=== PATIENT | male | born 2000 | race Caucasian/White ===

== ENCOUNTER → 2018-10-08 | Outpatient (CLI) | payer OTHER ==
[2018-10-08 14:10] LABS: HEMOGLOBIN 14.5 g/dl (13.5-17.5); MEAN CORPUSCULAR HEMOGLOBIN 29.7 pg (27.0-33.0); MEAN CORPUSCULAR HGB CONC 33.7 g/dl (32.0-36.5); MEAN CORPUSCULAR VOLUME 87.9 fl (80.0-96.0); PLATELET COUNT, AUTOMATED 271 10^3/uL (150-450); RED BLOOD COUNT 4.89 10^6/uL (4.30-6.10); WHITE BLOOD COUNT 7.4 10^3/uL (4.0-10.0)
[2018-10-08 14:29] LABS: BLOOD UREA NITROGEN 17 MG/DL (7-18); CALCIUM LEVEL 9.1 MG/DL (8.5-10.1); CARBON DIOXIDE LEVEL 30 MEQ/L (21-32); CHLORIDE LEVEL 105 MEQ/L (98-107); CREATININE FOR GFR 1.18 MG/DL (0.70-1.30); GLUCOSE, FASTING 91 MG/DL (70-100); POTASSIUM SERUM 4.4 MEQ/L (3.5-5.1); SODIUM LEVEL 139 MEQ/L (136-145)
== END ==
LOC: M LAB 13:36
PROVIDERS: ATTEND Plastic Surgery Surgery of the Hand
DX: M54.07 Panniculitis affecting regions of neck and back, lumbosacral region (principal)

== ENCOUNTER 2018-10-13 10:05 | Inpatient (IN) | payer OTHER ==
[~2018-10-13] VITALS: Ht 180.3 cm; Wt 98.3 kg
[~2018-10-13 10:05] MED LIST: LR 1,000 ML IV ONE; ceFAZolin SOD 1 GM in D5W MINI-BAG PLUS 50 ML IV ONE
[2018-10-13] MEDS ORDERED: BUPIVACAINE LIPOSOME/PF 1.3% 20ML VIAL (13.3MG/ML)(EXPAREL)(C9290 PER1MG) As Ordered ONE (12:35)
[2018-10-13] MEDS ORDERED: BACITRACIN PWD 50,000 UNITS VIAL As Ordered ONE (12:35)
[2018-10-13] MEDS ORDERED: ROCURONIUM BROMIDE 50 MG/5 ML VIAL As Ordered ONE ×2 (13:12→13:23)
[2018-10-13] MEDS ORDERED: LIDOCAINE 2% INJ 100 MG/5 ML SDV (FOR ANES.) As Ordered ONE (13:12)
[2018-10-13] MEDS ORDERED: PROPOFOL 200 MG/20 ML VIAL As Ordered ONE (13:12)
[2018-10-13] MEDS ORDERED: MIDAZOLAM INJ 2 MG/2 ML VIAL (J2250) As Ordered ONE (13:12)
[2018-10-13] MEDS ORDERED: fentaNYL 100 MCG/2 ML INJECTION (J3010) As Ordered ONE (13:12)
[2018-10-13] MEDS ORDERED: dexameTHASONE 4 MG/ML 1ML VIAL (J1100) As Ordered ONE (13:15)
[2018-10-13] MEDS ORDERED: ACETAMINOPHEN 1000MG 100ML IV BTL (OFIRMEV) (J0131 PER 10MG) As Ordered ONE (13:24)
[2018-10-13] MEDS ORDERED: HYDROmorphone HCL 2 MG/ML 1ML VIAL (J1170) As Ordered ONE (13:27)
[2018-10-13] MEDS ORDERED: ONDANSETRON 4MG/2ML VIAL (J2405) As Ordered ONE (14:16)
[2018-10-13] MEDS ORDERED: SUGAMMADEX SODIUM 500 MG/5 ML VIAL (BRIDION) As Ordered ONE (14:28)
--- NOTE | 2018-10-13 15:30 | POST-OPPD ---
Postoperative Procedure Note Date Of Procedure: Oct 13, 2018 PREOPERATIVE DIAGNOSIS: panniculitis POSTOPERATIVE DIAGNOSIS: same FINDINGS: Pannus PROCEDURE: Panniculectomy SURGEON: Dr Farrell ANESTHESIA: General SPECIMENS: Pannus 451gm ESTIMATED BLOOD LOSS: 100cc REPLACED: none DRAINS: 10 mm ALVERTO drains x 2 COMPLICATIONS: none POSTOPERATIVE CONDITION: stable dict [id number] PINO FARRELL DO Oct 13, 2018 15:30
[2018-10-13] MEDS ORDERED: oxyCODONE 5MG TAB PO PRN (16:00)
[2018-10-13] MEDS ORDERED: ONDANSETRON 4MG/2ML VIAL (J2405) IV PRN ×2 (16:00→17:15)
[2018-10-13] MEDS ORDERED: LR 1,000 ML IV SCH (16:00)
[2018-10-13] MEDS ORDERED: MEPERIDINE INJ 25 MG/ML VIAL (J2175) IV PRN (16:00)
[2018-10-13] MEDS ORDERED: fentaNYL 100 MCG/2 ML INJECTION (J3010) IV PRN (16:00)
[2018-10-13] MEDS ORDERED: ACETAMINOPHEN TAB 650MG DOSE (2X325MG) PO PRN (17:00)
--- NOTE | 2018-10-13 17:07 | HPEPDOC ---
General Date of Admission 10/13/18 Date of Service: Oct 13, [address] Barksdale Attending Physician: ALFONSO BRITO MD Chief Complaint The patient is a 18-year-old male admitted with a reason for visit of Panniculitis. Source: Patient Exam Limitations: No limitations Timing/Duration: Other Severity: Other (not applicable a couple) Associated Symptoms: Other (none) History of Present Illness This is 18 years old white male with past medical history of no medical disease has lasted more than 100 pounds in 6 months and decided to come and get a panniculectomy done by Dr. George. Surgery went very well without any problems and complication until was discovered by anesthesia that his heart rate was sometimes in low 30s and we called in to admit patient for observation. As per patient, he does not have any history of any medical disease including heart disease, but he feels dizzy once in a while when he is playing sports. Denies any chest pain, shortness of breath, nausea, vomiting or loss of consciousness. Home Medications No Active Prescriptions or Reported Meds Allergies Coded Allergies: No Known Allergies (Unverified , 10/13/18) Past Medical History Medical History None Surgical History Tonsillectomy Family History Significant Family History: No pertinent family hx Social History * Smoker: current smoker Alcohol: Denies Drugs: denies A-FIB/CHADSVASC A-FIB History Current/History of A-Fib/PAF?: No Review of Systems Constitutional: Denies: Chills, Fever, Malaise, Night Sweats, Weakness, Fatigue, Weight Loss, Lethargy, Other Eyes: Denies: Pain, Vision change, Conjunctivae inflammation, Eyelid inflammation, Redness, Other ENT: Denies: Head Aches, Ear Pain, Dysphagia, Sinus Congestion, Post Nasal Drip, Sore Throat, Epistaxis, Other Symptoms Skin: Denies: Rash, Lesions, Jaundice, Bruising, Itching, Dry, Breakdown, Nail Changes, Other Pulmonary: Denies: Dyspnea, Cough, Pleuritic Chest Pain, Other Symptoms Cardiovascular: Denies: Chest Pain, Palpitations, Orthopnea, Paroxysmal Noc. Dyspnea, Edema, Lt Headedness, Other Symptoms Gastrointestinal: Denies: Nausea, Vomiting, Abdominal Pain, Diarrhea, Constipation, Melena, Hematochezia, Other Symptoms Genitourinary: Denies: Dysuria, Frequency, Incontinence, Hematuria, Retention, Other Symptoms Hematologic: Denies: Bruising, Bleeding Excessively, Petecchia, Purpura, Enlarged Lymph Nodes, Other Hematologic Endocrine: Denies: Polydipsia, Polyphagia, Polyuria, Heat Intolerance, Cold Intolerance, Other Endocrine Sx Musculoskeletal: Denies: Neck Pain, Back Pain, Shoulder Pain, Arm Pain, Hand Pain, Leg Pain, Foot Pain, Joint Pain, Muscle Pain, Spasms, Other Symptoms Neurological: Denies: Weakness, Numbness, Incoordination, Change in speech, Confusion, Seizures, Other Symptoms Physical Examination General Exam: Positive: Alert, Cooperative Eye Exam: Positive: PERRLA, Conjunctiva & lids normal ENT Exam: Positive: Atraumatic, Mucous membr. moist/pink Neck Exam: Positive: Supple Chest Exam: Positive: Clear to auscultation, Normal air movement Heart Exam: Positive: Rate Normal, Normal S1, Normal S2 Abdomen Exam: Positive: Normal bowel sounds, Soft Extremity Exam: Positive: Normal pulses Skin Exam: Positive: Nl turgor and temperature Neuro Exam: Positive: Strength at 5/5 X4 ext, Sensation Intact Psych Exam: Positive: Mental status NL, Mood NL, Oriented x 3 Vital Signs Vital Signs Date Time Temp Pulse Resp B/P (MAP) Pulse Ox O2 Delivery O2 Flow Rate FiO2 10/13/18 16:55 98.3 43 18 95 10/13/18 16:50 141/65 (90) 10/13/18 16:05 2 Problems (1) Sinus bradycardia Status: Acute Problem Text: 18 years old white male is being admitted as he was found to be i n sinus bradycardia post anesthesia. Patient has no history of cardiac disease. No other medical problems, sinus bradycardia, most likely secondary to anesthesia, but will be admitted for observation and hopefully will be discharged home tomorrow. Admit patient to the PCU for further observation Telemetry monitoring Activity as tolerated Diet regular DVT prophylaxis not needed as patient is very low risk for DVT Pain management as per Dr. Aragon pt received a dose of Ancef post postop we will also request the echocardiogram in a.m. If patient maintains his cardiac rhythm is normal sinus rhythm and normal echocardiogram, then he can be discharged home and follow with his PCP as an outpatient. No further medical intervention deemed necessary at this time (2) S/P panniculectomy Status: Acute Problem Text: Patient has lost more than 100 pounds in 6 months Colectomy done without any complications or problems Further, as per plastic surgery Plan / VTE VTE Prophylaxis Ordered?: No VTE Exclusion Mechanical Proph: Low Risk for VTE VTE Exclusion Pharmacological: At Low Risk for VTE ALFONSO BRITO MD Oct 13, 2018 17:07
[2018-10-13] MEDS ORDERED: MORPHINE 4 MG/ML 1ML VIAL/SYRINGE (J2270) IV PRN (17:15)
[2018-10-13] MEDS ORDERED: PERCOCET 5MG/325MG TAB PO PRN (17:15)
[2018-10-13 17:27] VITALS: BP 132/59
[2018-10-13 17:57] VITALS: BP 128/58
--- NOTE | 2018-10-13 18:12 | IPNPDOC ---
Subjective General Date/Time Seen The patient was seen on 10/13/18 at 16:05. Subject Chief Complaint/History The patient is a 18-year-old male admitted with a reason for visit of Panniculitis. Patient is POD #0. Doing well in recovery. Pain controlled. Making his needs known. Current Medications Current Medications Current Medications Medications (Trade) Dose Ordered Sig/Harjeet Route PRN Reason Start Time Stop Time Status Last Admin Dose Admin Acetaminophen (Tylenol Tab) 650 mg Q4H PRN PO PAIN OR FEVER 10/13/18 17:00 Cefazolin Sodium 1 gm/Dextrose 50 ml @ 100 mls/hr Q8H IV 10/13/18 21:00 10/14/18 05:29 Fentanyl Citrate (Sublimaze) 25 mcg Q5MP PRN IV MODERATE PAIN (PS 4-7) 10/13/18 16:00 10/13/18 17:00 DC Lactated Ringer's 1,000 ml @ 100 mls/hr Q10H IV 10/13/18 16:00 10/13/18 17:00 DC 10/13/18 15:39 Meperidine HCl (Demerol) 12.5 mg Q5MP PRN IV SHIVERING 10/13/18 16:00 10/13/18 17:00 DC Morphine Sulfate (Morphine Sulfate Inj) 4 mg Q4H PRN IV PAIN 10/13/18 17:15 Ondansetron HCl (ZOFRAN INJection) 4 mg Q4HP PRN IV NAUSEA OR VOMITING 10/13/18 16:00 10/13/18 17:00 DC Ondansetron HCl (ZOFRAN INJection) 4 mg Q6H PRN IV NAUSEA 10/13/18 17:15 Oxycodone HCl (Roxicodone, Oxyir) 5 mg ASDIRECTED PRN PO MILD/MODERATE PAIN (PS 1-7) 10/13/18 16:00 10/13/18 17:00 DC 10/13/18 15:55 Oxycodone/ Acetaminophen (Percocet 5mg/ 325mg Tablet) 1 tab Q4H PRN PO MODERATE PAIN 10/13/18 17:15 Allergies Coded Allergies: No Known Allergies (Unverified , 10/13/18) Objective Physical Examination Examination GENERAL APPEARANCE: Patient seen, laying in bed, awake, alert, and oriented. Comfortable, in no acute distress. SKIN: Warm and moist. Incision intact. ALVERTO drains with dark sanguinous output. 25cc left 50cc right. HEENT: Normocephalic, atraumatic. Ellerbe palpebral conjunctiva, anicteric sclerae. Lips and mucosa appear moist. NECK: Supple, no thyromegaly. No obvious jugular venous distention. LUNGS: Clear to auscultation bilaterally. No wheezing appreciated. HEART: No chest wall abnormalities. Regular rate and rhythm with no murmurs appreciated. ABDOMEN: Abdomen soft. Post op tenderness along the incision. Binder in place. No ecchymosis. Vital Signs Vital Signs Date Time Temp Pulse Resp B/P (MAP) Pulse Ox O2 Delivery O2 Flow Rate FiO2 10/13/18 17:00 42 18 144/63 (90) 93 10/13/18 16:55 98.3 10/13/18 16:05 2 Impression S/p Panniculectomy POD #0 Bradycardia. 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 No chest pain or palpitations per patient. Feeling comfortable. Normal B/P and no distress. However, will monitor the bradycardia on telemetry unit. Medical consult for admission called. Panniculectomy: continue with HOB at 45 degrees. May ambulate today. SCD in bed Incentive spirometry Pain control ordered ALVERTO monitoring. Will follow closely. Plan / VTE VTE Prophylaxis Ordered?: No VTE Exclusion Mechanical Proph: Low Risk for VTE VTE Exclusion Pharmacological: At Low Risk for VTE PINO FARRELL DO Oct 13, 2018 18:12
[2018-10-13 18:17] VITALS: BP 132/61
[2018-10-13 19:20] VITALS: BP 132/59
[2018-10-13 20:20] VITALS: BP 137/61
[2018-10-13] MEDS: ceFAZolin SOD 1 GM in D5W MINI-BAG PLUS 50 ML IV SCH (20:57)
[2018-10-13 23:59] VITALS: BP 120/58
[2018-10-14] VITALS (13 sets, daily range): BP systolic 100–137; BP diastolic 49–63
[2018-10-14] MEDS ORDERED: NS 1,000 ML IV SCH ×2 (01:15→09:00)
[2018-10-14] MEDS: ceFAZolin SOD 1 GM in D5W MINI-BAG PLUS 50 ML IV SCH ×2 (05:35→21:32)
[2018-10-14 05:59] LABS: HEMATOCRIT 32.8 % (42.0-52.0); HEMOGLOBIN 11.1 g/dl (13.5-17.5); MEAN CORPUSCULAR HGB CONC 33.8 g/dl (32.0-36.5); MEAN CORPUSCULAR VOLUME 88.6 fl (80.0-96.0); PLATELET COUNT, AUTOMATED 285 10^3/uL (150-450); WHITE BLOOD COUNT 15.9 10^3/uL (4.0-10.0)
[2018-10-14 06:36] LABS: ALBUMIN 3.2 GM/DL (3.2-5.2); ALT/SGPT 13 U/L (12-78); BILIRUBIN,TOTAL 1.1 MG/DL (0.2-1.0); BLOOD UREA NITROGEN 20 MG/DL (7-18); CALCIUM LEVEL 8.3 MG/DL (8.5-10.1); CARBON DIOXIDE LEVEL 28 MEQ/L (21-32); CHLORIDE LEVEL 104 MEQ/L (98-107); CREATININE FOR GFR 0.96 MG/DL (0.70-1.30); GLUCOSE, FASTING 118 MG/DL (70-100); POTASSIUM SERUM 4.7 MEQ/L (3.5-5.1); SODIUM LEVEL 137 MEQ/L (136-145); TOTAL PROTEIN 5.8 GM/DL (6.4-8.2)
--- NOTE | 2018-10-14 09:08 | IPNPDOC ---
Subjective General Date/Time Seen The patient was seen on 10/14/18 at 08:43. Subject Chief Complaint/History The patient is a 18-year-old male admitted with a reason for visit of Panniculitis. Patient feeling well this morning. Pain controlled with Percocet. He had difficulty urinating last night, straight cath was done. Current Medications Current Medications Current Medications Medications (Trade) Dose Ordered Sig/Harjeet Route PRN Reason Start Time Stop Time Status Last Admin Dose Admin Acetaminophen (Tylenol Tab) 650 mg Q4H PRN PO PAIN OR FEVER 10/13/18 17:00 Cefazolin Sodium 1 gm/Dextrose 50 ml @ 100 mls/hr Q8H IV 10/13/18 21:00 10/14/18 05:29 DC 10/14/18 05:35 Fentanyl Citrate (Sublimaze) 25 mcg Q5MP PRN IV MODERATE PAIN (PS 4-7) 10/13/18 16:00 10/13/18 17:00 DC Lactated Ringer's 1,000 ml @ 100 mls/hr Q10H IV 10/13/18 16:00 10/13/18 17:00 DC 10/13/18 15:39 Meperidine HCl (Demerol) 12.5 mg Q5MP PRN IV SHIVERING 10/13/18 16:00 10/13/18 17:00 DC Morphine Sulfate (Morphine Sulfate Inj) 4 mg Q4H PRN IV PAIN 10/13/18 17:15 10/13/18 23:02 Ondansetron HCl (ZOFRAN INJection) 4 mg Q4HP PRN IV NAUSEA OR VOMITING 10/13/18 16:00 10/13/18 17:00 DC Ondansetron HCl (ZOFRAN INJection) 4 mg Q6H PRN IV NAUSEA 10/13/18 17:15 10/13/18 23:02 Oxycodone HCl (Roxicodone, Oxyir) 5 mg ASDIRECTED PRN PO MILD/MODERATE PAIN (PS 1-7) 10/13/18 16:00 10/13/18 17:00 DC 10/13/18 15:55 Oxycodone/ Acetaminophen (Percocet 5mg/ 325mg Tablet) 1 tab Q4H PRN PO MODERATE PAIN 10/13/18 17:15 10/13/18 20:57 Sodium Chloride 1,000 ml @ 100 mls/hr Q10H IV 10/14/18 01:15 10/14/18 01:31 Allergies Coded Allergies: No Known Allergies (Unverified , 10/13/18) Objective Physical Examination Examination GENERAL APPEARANCE:Patient seen, laying in bed, awake, alert, and oriented. Comfortable, in no acute distress. SKIN: Warm and moist. Incision intact. Slight ecchymosis along the incision line. Left side with mild swelling. Left ALVERTO drain with minimal dark sanguinous output. Right side abdomen soft no swelling. ALVERTO with minimal dark sanguinous output. Flaps viable. HEENT: Normocephalic, atraumatic. Misenheimer palpebral conjunctiva, anicteric sclerae. Lips and mucosa appear moist. NECK: Supple, no thyromegaly. No obvious jugular venous distention. LUNGS: Clear to auscultation bilaterally. No wheezing appreciated. HEART: No chest wall abnormalities. Regular rate and rhythm with no murmurs appreciated. ABDOMEN: Abdomen is soft, post op tenderness along incision. Left lower abdomen swelling. Vital Signs Vital Signs Date Time Temp Pulse Resp B/P (MAP) Pulse Ox O2 Delivery O2 Flow Rate FiO2 10/14/18 08:00 98.0 54 20 112/53 (72) 100 10/13/18 16:05 2 I&Os I&O- Last 24 Hours up to 6 AM 10/14/18 06:00 Intake Total 1850 ml Output Total 815 ml Balance 1035 ml Laboratory Data Labs 24H Laboratory Tests 2 10/14/18 00:51: Bedside Glucose (Misc Panel) 148H 10/14/18 05:26: Nucleated Red Blood Cells % (auto) 0.0, Anion Gap 5L, Blood Urea Nitrogen 20H, Creatinine 0.96, Sodium Level 137, Potassium Level 4.7, Chloride Level 104, Carbon Dioxide Level 28, Calcium Level 8.3L, Aspartate Amino Transf (AST/SGOT) 9, Alanine Aminotransferase (ALT/SGPT) 13, Alkaline Phosphatase 59, Total Bilirubin 1.1H, Total Protein 5.8L, Albumin 3.2, Albumin/Globulin Ratio 1.23 CBC/BMP Laboratory Tests 10/14/18 05:26 Red Blood Count 3.70 L, Mean Corpuscular Volume 88.6, Mean Corpuscular Hemoglobin 30.0, Mean Corpuscular Hemoglobin Concent 33.8, Red Cell Distribution Width 13.3, Calcium Level 8.3 L, Aspartate Amino Transf (AST/SGOT) 9, Alanine Aminotransferase (ALT/SGPT) 13, Alkaline Phosphatase 59, Total Bilirubin 1.1 H, Total Protein 5.8 L, Albumin 3.2 Impression Panniculitis, bradycardia. S/p Panniculectomy. Suspecting hematoma collection under the flap. Recommend evaluation under anesthesia and wash out. Findings discussed with patient. H/H stable Asymptomatic. Bradycardia - continue with work up by medical service. Continue with antibiotics. Plan / VTE VTE Prophylaxis Ordered?: Yes (SCD in bed) VTE Exclusion Mechanical Proph: Low Risk for VTE VTE Exclusion Pharmacological: At Low Risk for VTE PNIO FARRELL DO Oct 14, 2018 09:08
--- NOTE | 2018-10-14 11:19 | ECGEPIP ---
[facility] Test Date: 2018-10-14 Pat Name: DAVID GUNTER Department: Room: [place] [address] Gender: Male Manager Transition: KIKI : 2000 Requested By: PAULETTE Henry Order Number: [id number] Reading MD: Moriah Craft Measurements Intervals [place] Rate: 59 P: 50 NC: 168 QRS: 45 QRSD: 109 T: 20 QT: 423 QTc: 422 Interpretive Statements SINUS BRADYCARDIA WITH SINUS ARRHYTHMIA Electronically Signed on 10-14-2018 11:19:28 EDT by Moriah Craft
[2018-10-14] MEDS ORDERED: dexameTHASONE 4 MG/ML 1ML VIAL (J1100) As Ordered ONE (12:14)
[2018-10-14] MEDS ORDERED: METOCLOPRAMIDE INJ 10MG/2ML VIAL (J2765) As Ordered ONE (12:14)
[2018-10-14] MEDS ORDERED: fentaNYL 100 MCG/2 ML INJECTION (J3010) As Ordered ONE ×2 (12:14→13:01)
[2018-10-14] MEDS ORDERED: LIDOCAINE 2% INJ 100 MG/5 ML SDV (FOR ANES.) As Ordered ONE (12:14)
[2018-10-14] MEDS ORDERED: MIDAZOLAM INJ 2 MG/2 ML VIAL (J2250) As Ordered ONE (12:15)
[2018-10-14] MEDS ORDERED: PROPOFOL 200 MG/20 ML VIAL As Ordered ONE ×2 (12:15→12:40)
[2018-10-14] MEDS ORDERED: ONDANSETRON 4MG/2ML VIAL (J2405) As Ordered ONE (12:15)
[2018-10-14] MEDS ORDERED: GLYCOPYRROLATE INJ 0.2 MG/ML 2 ML VIAL As Ordered ONE (12:20)
[2018-10-14] MEDS ORDERED: BACITRACIN PWD 50,000 UNITS VIAL As Ordered ONE (12:23)
[2018-10-14] MEDS ORDERED: ceFAZolin 1GM INJ (J0690 PER 500MG) As Ordered ONE (12:44)
[2018-10-14] MEDS ORDERED: ceFAZolin SOD 1 GM in D5W MINI-BAG PLUS 50 ML IV SCH (13:00)
--- NOTE | 2018-10-14 14:00 | POST-OPPD ---
Postoperative Procedure Note Date Of Procedure: Oct 14, 2018 PREOPERATIVE DIAGNOSIS: Abdominal incision hematoma POSTOPERATIVE DIAGNOSIS: same FINDINGS: Hematoma 800cc. generalized oozing. No active bleeding vessels. PROCEDURE: Exploration lower abdominal incision, evacuation hematoma. SURGEON: Dr Farrell ANESTHESIA: General SPECIMENS: Hematoma, Culture hematoma ESTIMATED BLOOD LOSS: Hematoma 800cc REPLACED: none DRAINS: 10 mm ALVERTO drain x 2. COMPLICATIONS: none POSTOPERATIVE CONDITION: stable [id number] PINO FARRELL DO Oct 14, 2018 14:00
[2018-10-14] MEDS ORDERED: PERCOCET 5MG/325MG TAB PO PRN (14:15)
[2018-10-14] MEDS ORDERED: fentaNYL 100 MCG/2 ML INJECTION (J3010) IV PRN (14:15)
[2018-10-14] MEDS ORDERED: LR 1,000 ML IV SCH (14:15)
[2018-10-14] MEDS ORDERED: HYDROMORPHONE HCL 0.5 MG/ 0.5 ML SYRINGE (J1170 PER 1) IV PRN (14:15)
[2018-10-14] MEDS ORDERED: ONDANSETRON 4MG/2ML VIAL (J2405) IV PRN ×2 (14:15→14:45)
[2018-10-14] MEDS ORDERED: PERCOCET 5MG/325MG TAB As Ordered ONE (14:29)
[2018-10-14] MEDS: LR 1,000 ML IV SCH (15:33)
[2018-10-14 15:54] LABS: BASO % 0.1 % (0.0-1.0); EOS % 0.1 % (0.0-3.0); HEMATOCRIT 26.8 % (42.0-52.0); LYMPH % 10.3 % (24.0-44.0); MEAN CORPUSCULAR HEMOGLOBIN 30.6 pg (27.0-33.0); MEAN CORPUSCULAR HGB CONC 34.3 g/dl (32.0-36.5); MONO # 0.7 10^3/uL (0.0-0.8); MONO % 7.1 % (0.0-5.0); NEUTROPHILS # 7.8 10^3/uL (1.8-7.7); PLATELET COUNT, AUTOMATED 206 10^3/uL (150-450); RED BLOOD COUNT 3.01 10^6/uL (4.30-6.10); WHITE BLOOD COUNT 9.5 10^3/uL (4.0-10.0)
[2018-10-14 16:06] LABS: HEMOGLOBIN 9.2 g/dl (13.5-17.5)
[2018-10-14 16:08] LABS: BLOOD UREA NITROGEN 21 MG/DL (7-18); CALCIUM LEVEL 7.7 MG/DL (8.5-10.1); CARBON DIOXIDE LEVEL 28 MEQ/L (21-32); CHLORIDE LEVEL 106 MEQ/L (98-107); GLUCOSE, FASTING 109 MG/DL (70-100); POTASSIUM SERUM 4.3 MEQ/L (3.5-5.1); SODIUM LEVEL 140 MEQ/L (136-145)
--- NOTE | 2018-10-14 16:41 | IPNPDOC ---
Date Seen The patient was seen on 10/14/18. Progress Note SUBJECTIVE: Patient appeared comfortable, denying pain or any other complaints. Was noted to have minimal wound drainage and was taken to OR for evacuation of hematoma by Plastic surgery. HR remained low but in 50-70 range. ECHO done in AM. OBJECTIVE PHYSICAL EXAMINATION: VITAL SIGNS: Please see below. General: No acute distress, Alert Eyes: Normal sclera, EOMI, ZACKARY HENT: Atraumatic, neck supple, moist mucous membranes Cardiovascular: Bradycardic. Pulmonary: Clear to auscultation b/l, no wheezing GI: Soft, abdominal dressing/binder in place, partially soaked this AM on the L. side. Skin: Warm and dry Neuro: CN grossly intact. No focal deficits. Strengths equal b/l. Psych: oriented x 3 LABORATORY DATA, IMAGING STUDIES, MICROBIOLOGY: Please see below. DVT prophylaxis ordered?: SCD ASSESSMENT AND PLAN: 1. s/p Panniculectomy - Initial procedure 10/13 with OR for hematoma evacuation 10/14. - Patient appear comfortable without any complaints. - Plastic surgery following. - c/w Cefazolin for now. Repeat Hb 9.2 this afternoon from 11.1 this AM. - c/w to monitor daily CBCs and transfuse as needed. 2. Sinus bradycardia - Asymptomatic. Had discussed with cardiology, not uncommon in patients who has had significant rapid weight loss. - ECHO performed. f/u findings. - Will not likely need any intervention as he is asymptomatic and likely to improve. DISPOSITION: Home when stable. VS, I&O, 24H, Fishbone Vital Signs/I&O Vital Signs Date Time Temp Pulse Resp B/P (MAP) Pulse Ox O2 Delivery O2 Flow Rate FiO2 10/14/18 15:10 97.5 55 18 134/61 (85) 96 10/13/18 16:05 2 I&O- Last 24 Hours up to 6 AM 10/14/18 06:00 Intake Total 1850 ml Output Total 815 ml Balance 1035 ml Laboratory Data 24H LABS Laboratory Tests 2 10/14/18 00:51: Bedside Glucose (Misc Panel) 148H 10/14/18 05:26: Nucleated Red Blood Cells % (auto) 0.0, Anion Gap 5L, Blood Urea Nitrogen 20H, Creatinine 0.96, Sodium Level 137, Potassium Level 4.7, Chloride Level 104, Carbon Dioxide Level 28, Calcium Level 8.3L, Aspartate Amino Transf (AST/SGOT) 9, Alanine Aminotransferase (ALT/SGPT) 13, Alkaline Phosphatase 59, Total Bilirubin 1.1H, Total Protein 5.8L, Albumin 3.2, Albumin/Globulin Ratio 1.23 10/14/18 15:24: Nucleated Red Blood Cells % (auto) 0.0, Anion Gap 6L, Blood Urea Nitrogen 21H, Creatinine 0.90, Sodium Level 140, Potassium Level 4.3, Chloride Level 106, Carbon Dioxide Level 28, Calcium Level 7.7L, Immature Granulocyte % (Auto) 0.4, White Blood Count 9.5, Red Blood Count 3.01L, Hemoglobin 9.2L, Hematocrit 26.8L, Mean Corpuscular Volume 89.0, Mean Corpuscular Hemoglobin 30.6, Mean Corpuscular Hemoglobin Concent 34.3, Red Cell Distribution Width 13.5, Platelet Count 206, Neutrophils (%) (Auto) 82.0H, Lymphocytes (%) (Auto) 10.3L, Monocytes (%) (Auto) 7.1H, Eosinophils (%) (Auto) 0.1, Basophils (%) (Auto) 0.1, Neutrophils # (Auto) 7.8H, Lymphocytes # (Auto) 1.0L, Monocytes # (Auto) 0.7, Eosinophils # (Auto) 0.0, Basophils # (Auto) 0.0 CBC/BMP Laboratory Tests 10/14/18 05:26 Red Blood Count 3.70 L, Mean Corpuscular Volume 88.6, Mean Corpuscular Hemoglobin 30.0, Mean Corpuscular Hemoglobin Concent 33.8, Red Cell Distribution Width 13.3, Calcium Level 8.3 L, Aspartate Amino Transf (AST/SGOT) 9, Alanine Aminotransferase (ALT/SGPT) 13, Alkaline Phosphatase 59, Total Bilirubin 1.1 H, Total Protein 5.8 L, Albumin 3.2 10/14/18 15:24 Red Blood Count 3.01 L, Mean Corpuscular Volume 89.0, Mean Corpuscular Hemoglobin 30.6, Mean Corpuscular Hemoglobin Concent 34.3, Red Cell Distribution Width 13.5, Calcium Level 7.7 L, Neutrophils (%) (Auto) 82.0 H, Lymphocytes (%) (Auto) 10.3 L, Monocytes (%) (Auto) 7.1 H, Eosinophils (%) (Auto) 0.1, Basophils (%) (Auto) 0.1, Neutrophils # (Auto) 7.8 H, Lymphocytes # (Auto) 1.0 L, Monocytes # (Auto) 0.7, Eosinophils # (Auto) 0.0, Basophils # (Auto) 0.0 Microbiology Microbiology 10/14/18 Wound Culture, Received Pending 10/14/18 Anaerobic Culture, Received Pending PAULETTE JOHNSON MD Oct 14, 2018 16:41
--- NOTE | 2018-10-14 17:12 | RO ---
DATE OF PROCEDURE: 10/13/2018 PREOPERATIVE DIAGNOSIS: Panniculitis. POSTOPERATIVE DIAGNOSIS: Panniculitis. PROCEDURE Panniculectomy. ATTENDING SURGEON: Dr. Barksdale ANESTHESIA: General. SPECIMEN SENT: Pannus 451 grams. BLOOD LOSS: 100 mL. REPLACEMENT: None. DRAINS: Left in place. 10 mm Tristin Wei times two. COMPLICATIONS: None. CONDITION: Postoperative condition stable. PROCEDURE: This is a 18-year-old gentleman who lost a significant amount of weight. He has a pannus below the umbilicus and with a minimal amount of fatty tissue. He is a good candidate for a panniculectomy and he is scheduled to have this procedure done today. All risk, benefits, and alternatives were discussed with the patient at length and he is ready to proceed. He was marked in the in the preoperative holding area. The incision was 7 cm from the groin crease and outlined the area where the incision was going to be taking place in the midline and the proposed amount of tissue resected. The patient was brought in to the operating room and placed in supine position. Preoperative antibiotics were given. Sequential stockings were placed on the lower calves and general anesthesia was induced. Silva catheter was introduced into the bladder without any difficulties and he was prepped and draped in the usual sterile fashion. The measurements were re done when he was supine position, 7 cm lower abdominal incision. The incision was carried out using a 10 blade and then sharp dissection with electrocautery was continued until the rectus fascia is identified. Hemostasis was obtained using electrocautery. The larger veins were identified and ligated with suture with 3-0 Vicryl ties and then the flap was raised until the umbilicus point medially and laterally. Hemostasis was obtained as we went along with electrocautery. Then the excess tissue was measured and resected using scalpel and the electrocautery. Hemostasis was obtained again and then we tailored the flap to close without the dog ears and about any undue tension. Patient was flexed before the closure begun and the closure was done in layers with 3-0 Vicryl sutures for the deeper fascia portion and the 0-Vicryl and the 3-0 Monocryl suture. 10 mm Tristin-Wei drains were placed in the lateral portion of the horizontal incision and before the closure begun we injected the rectus fascia with Exparel 10 mL and then 7 mL were infiltrated into the incision line for postoperative pain management. Patient was extubated in the operating room without any difficulties and then he was transferred to the recovery room in stable condition. CECILIA
--- NOTE | 2018-10-14 17:48 | IPNPDOC ---
Subjective General Date/Time Seen The patient was seen on 10/14/18 at 17:41. Subject Chief Complaint/History The patient is a 18-year-old male admitted with a reason for visit of Panniculitis. Patient s/p evacuation subcutaneous hematoma s/p panniculectomy today. Patient states he is feeling much better now. No pain. Its controlled with Percocet. No abdominal pain, CP, SOB, nausea. Current Medications Current Medications Current Medications Medications (Trade) Dose Ordered Sig/Harjeet Route PRN Reason Start Time Stop Time Status Last Admin Dose Admin Acetaminophen (Tylenol Tab) 650 mg Q4H PRN PO PAIN OR FEVER 10/13/18 17:00 10/14/18 14:43 DC Cefazolin Sodium 1 gm/Dextrose 50 ml @ 100 mls/hr Q8H IV 10/13/18 21:00 10/14/18 05:29 DC 10/14/18 05:35 Cefazolin Sodium 1 gm/Dextrose 50 ml @ 100 mls/hr Q8H IV 10/14/18 13:00 10/14/18 14:43 DC Cefazolin Sodium 1 gm/Dextrose 50 ml @ 100 mls/hr Q8H IV 10/14/18 21:00 Fentanyl Citrate (Sublimaze) 25 mcg Q5MP PRN IV MODERATE PAIN (PS 4-7) 10/13/18 16:00 10/13/18 17:00 DC Fentanyl Citrate (Sublimaze) 25 mcg Q5MP PRN IV MODERATE PAIN (PS 4-7) 10/14/18 14:15 10/14/18 15:10 DC Hydromorphone HCl (Dilaudid) 0.2 mg Q5MP PRN IV MODERATE/SEVERE PAIN (PS 5-10) 10/14/18 14:15 10/14/18 15:11 DC Lactated Ringer's 1,000 ml @ 75 mls/hr [id number] IV 10/14/18 14:45 10/14/18 15:33 Lactated Ringer's 1,000 ml @ 100 mls/hr Q10H IV 10/13/18 16:00 10/13/18 17:00 DC 10/13/18 15:39 Lactated Ringer's 1,000 ml @ 100 mls/hr Q10H IV 10/14/18 14:15 10/14/18 15:10 DC 10/14/18 14:00 Meperidine HCl (Demerol) 12.5 mg Q5MP PRN IV SHIVERING 10/13/18 16:00 10/13/18 17:00 DC Morphine Sulfate (Morphine Sulfate Inj) 4 mg Q4H PRN IV PAIN 10/13/18 17:15 10/14/18 14:43 DC 10/13/18 23:02 Ondansetron HCl (ZOFRAN INJection) 4 mg Q4HP PRN IV NAUSEA OR VOMITING 10/13/18 16:00 10/13/18 17:00 DC Ondansetron HCl (ZOFRAN INJection) 4 mg Q4HP PRN IV NAUSEA OR VOMITING 10/14/18 14:15 10/14/18 15:11 DC Ondansetron HCl (ZOFRAN INJection) 4 mg Q6H PRN IV NAUSEA 10/13/18 17:15 10/14/18 14:43 DC 10/13/18 23:02 Ondansetron HCl (ZOFRAN INJection) 4 mg Q8HP PRN IV NAUSEA 10/14/18 14:45 Oxycodone HCl (Roxicodone, Oxyir) 5 mg ASDIRECTED PRN PO MILD/MODERATE PAIN (PS 1-7) 10/13/18 16:00 10/13/18 17:00 DC 10/13/18 15:55 Oxycodone/ Acetaminophen (Percocet 5mg/ 325mg Tablet) 1 tab ASDIRECTED PRN PO MILD/MODERATE PAIN (PS 1-7) 10/14/18 14:15 10/14/18 15:11 DC Oxycodone/ Acetaminophen (Percocet 5mg/ 325mg Tablet) 1 tab Q4H PRN PO MODERATE PAIN 10/13/18 17:15 10/14/18 14:43 DC 10/13/18 20:57 Oxycodone/ Acetaminophen (Percocet 5mg/ 325mg Tablet) 1 tab Q4HP PRN PO PAIN 10/14/18 14:45 Sodium Chloride 1,000 ml @ 100 mls/hr Q10H IV 10/14/18 01:15 10/14/18 09:02 DC 10/14/18 01:31 Sodium Chloride 1,000 ml @ 100 mls/hr Q10H IV 10/14/18 09:00 10/14/18 14:39 DC 10/14/18 11:09 Allergies Coded Allergies: No Known Allergies (Unverified , 10/13/18) Objective Physical Examination Examination GENERAL APPEARANCE:Patient seen, laying in bed, awake, alert, and oriented. Comfortable, in no acute distress. SKIN: Warm and moist. Incision intact. ALVERTO serosanguineous Left 15cc, Right 50 cc. HEENT: Normocephalic, atraumatic. Itmann palpebral conjunctiva, anicteric sclerae. Lips and mucosa appear moist. NECK: Supple, no thyromegaly. No obvious jugular venous distention. LUNGS: Clear to auscultation bilaterally. No wheezing appreciated. HEART: No chest wall abnormalities. Regular rate and rhythm with no murmurs appreciated. ABDOMEN: Abdomen is soft, NT/ND. Vital Signs Vital Signs Date Time Temp Pulse Resp B/P (MAP) Pulse Ox O2 Delivery O2 Flow Rate FiO2 10/14/18 16:20 99.3 53 18 122/53 (76) 97 10/13/18 16:05 2 I&Os I&O- Last 24 Hours up to 6 AM 10/14/18 06:00 Intake Total 1850 ml Output Total 815 ml Balance 1035 ml Laboratory Data Labs 24H Laboratory Tests 2 10/14/18 00:51: Bedside Glucose (Misc Panel) 148H 10/14/18 05:26: Nucleated Red Blood Cells % (auto) 0.0, Anion Gap 5L, Blood Urea Nitrogen 20H, Creatinine 0.96, Sodium Level 137, Potassium Level 4.7, Chloride Level 104, Carbon Dioxide Level 28, Calcium Level 8.3L, Aspartate Amino Transf (AST/SGOT) 9, Alanine Aminotransferase (ALT/SGPT) 13, Alkaline Phosphatase 59, Total Bilirubin 1.1H, Total Protein 5.8L, Albumin 3.2, Albumin/Globulin Ratio 1.23 10/14/18 15:24: Nucleated Red Blood Cells % (auto) 0.0, Anion Gap 6L, Blood Urea Nitrogen 21H, Creatinine 0.90, Sodium Level 140, Potassium Level 4.3, Chloride Level 106, Carbon Dioxide Level 28, Calcium Level 7.7L, Immature Granulocyte % (Auto) 0.4, White Blood Count 9.5, Red Blood Count 3.01L, Hemoglobin 9.2L, Hematocrit 26.8L, Mean Corpuscular Volume 89.0, Mean Corpuscular Hemoglobin 30.6, Mean Corpuscular Hemoglobin Concent 34.3, Red Cell Distribution Width 13.5, Platelet Count 206, Neutrophils (%) (Auto) 82.0H, Lymphocytes (%) (Auto) 10.3L, Monocytes (%) (Auto) 7.1H, Eosinophils (%) (Auto) 0.1, Basophils (%) (Auto) 0.1, Neutrophils # (Auto) 7.8H, Lymphocytes # (Auto) 1.0L, Monocytes # (Auto) 0.7, Eosinophils # (Auto) 0.0, Basophils # (Auto) 0.0 CBC/BMP Laboratory Tests 10/14/18 05:26 Red Blood Count 3.70 L, Mean Corpuscular Volume 88.6, Mean Corpuscular Hemoglobin 30.0, Mean Corpuscular Hemoglobin Concent 33.8, Red Cell Distribution Width 13.3, Calcium Level 8.3 L, Aspartate Amino Transf (AST/SGOT) 9, Alanine Aminotransferase (ALT/SGPT) 13, Alkaline Phosphatase 59, Total Bilirubin 1.1 H, Total Protein 5.8 L, Albumin 3.2 10/14/18 15:24 Red Blood Count 3.01 L, Mean Corpuscular Volume 89.0, Mean Corpuscular Hemoglobin 30.6, Mean Corpuscular Hemoglobin Concent 34.3, Red Cell Distribution Width 13.5, Calcium Level 7.7 L, Neutrophils (%) (Auto) 82.0 H, Lymphocytes (%) (Auto) 10.3 L, Monocytes (%) (Auto) 7.1 H, Eosinophils (%) (Auto) 0.1, Basophils (%) (Auto) 0.1, Neutrophils # (Auto) 7.8 H, Lymphocytes # (Auto) 1.0 L, Monocytes # (Auto) 0.7, Eosinophils # (Auto) 0.0, Basophils # (Auto) 0.0 Microbiology Microbiology 10/14/18 Wound Culture, Received Pending 10/14/18 Anaerobic Culture, Received Pending Impression S/p panniculectomy 10/13/18 and hematoma evacuation 10/14/18 Asymptomatic bradycardia Vitals stable. No indication for blood transfusion at this time. Bedrest Start with Silva trial, plan to D/c by 6 am 10/15/18 Continue with IVF Cl liq diet, advance as tolerated. SCD in bed Incentive spirometry Will follow. Plan / VTE VTE Prophylaxis Ordered?: Yes (SCD in bed) VTE Exclusion Mechanical Proph: Low Risk for VTE VTE Exclusion Pharmacological: At Low Risk for VTE Plan / Urinary Catheter Reason for insertion/continuin: Acute obstruct/retention PINO FARRELL DO Oct 14, 2018 17:48
--- NOTE | 2018-10-14 19:12 | ECHO ---
DATE OF PROCEDURE: 10/14/2018 AGE: 18 GENDER: Male HEIGHT: 71 inches WEIGHT: 209 pounds BODY SURFACE AREA: 2.15 m2 PATIENT LOCATION: Inpatient, PCU, room 3216 REFERRING PHYSICIAN: Dr. Wolf INDICATION: Abnormal EKG/sinus bradycardia. 2-D MEASUREMENTS: RV: 4.2 cm LV: 5.0 cm Septum: 1.2 cm Posterior wall: 1.2 cm Aortic root: 2.9 cm LA: 3.8 cm LVEF: 75 - 80% DOPPLER MEASUREMENTS: AV: 1.7 m/s LVOT: 1.5 m/s LVOT diameter: 2.1 cm MV-E: 90, A: 44, EA ratio: 2 Early mitral deceleration time: 151 ms E prime: 10.6, A prime: 9, E/E prime ratio: 8.6 PV: 1.3 m/s Pulmonary artery acceleration time: 155 ms PASP: 9 mmHg IVC: 1.6 cm COMMENTS Sinus bradycardia without intraventricular conduction disturbance. M-mode and two-dimensional echocardiography was performed with pulsed, continuous wave, color flow and tissue Doppler studies. Borderline concentric left ventricle hypertrophy with hyperkinetic wall motion. Left atrial size upper limits of normal with normal Doppler assessment of LV diastolic function and estimated mean left atrial pressure. Right heart chamber sizes were upper limits of normal with hyperkinetic wall motion and normal estimated pulmonary arterial pressure. Normal IVC size and collapse against an elevated central venous pressure. Normal appearing and functioning valvular structures. Normal aortic diameters. No apparent intracardiac mass or pericardial effusion.
[2018-10-15] MEDS: PERCOCET 5MG/325MG TAB PO PRN ×3 (00:33→20:03)
--- NOTE | 2018-10-15 01:18 | IPNPDOC ---
Subjective General Date/Time Seen The patient was seen on 10/15/18 at 01:06. Subject Chief Complaint/History The patient is a 18-year-old male admitted with a reason for visit of Panniculitis, evacuation hematoma lower abdominal incision. Patient complaining of increased swelling of the scrotum and discomfort. Came to evaluate the patient. Denies increase of abdominal pain. No CP, dizziness, blood in the urine. Oth erwise feeling well. Current Medications Current Medications Current Medications Medications (Trade) Dose Ordered Sig/Harjeet Route PRN Reason Start Time Stop Time Status Last Admin Dose Admin Acetaminophen (Tylenol Tab) 650 mg Q4H PRN PO PAIN OR FEVER 10/13/18 17:00 10/14/18 14:43 DC Cefazolin Sodium 1 gm/Dextrose 50 ml @ 100 mls/hr Q8H IV 10/13/18 21:00 10/14/18 05:29 DC 10/14/18 05:35 Cefazolin Sodium 1 gm/Dextrose 50 ml @ 100 mls/hr Q8H IV 10/14/18 13:00 10/14/18 14:43 DC Cefazolin Sodium 1 gm/Dextrose 50 ml @ 100 mls/hr Q8H IV 10/14/18 21:00 10/14/18 21:32 Fentanyl Citrate (Sublimaze) 25 mcg Q5MP PRN IV MODERATE PAIN (PS 4-7) 10/13/18 16:00 10/13/18 17:00 DC Fentanyl Citrate (Sublimaze) 25 mcg Q5MP PRN IV MODERATE PAIN (PS 4-7) 10/14/18 14:15 10/14/18 15:10 DC Hydromorphone HCl (Dilaudid) 0.2 mg Q5MP PRN IV MODERATE/SEVERE PAIN (PS 5-10) 10/14/18 14:15 10/14/18 15:11 DC Lactated Ringer's 1,000 ml @ 75 mls/hr [id number] IV 10/14/18 14:45 10/14/18 15:33 Lactated Ringer's 1,000 ml @ 100 mls/hr Q10H IV 10/13/18 16:00 10/13/18 17:00 DC 10/13/18 15:39 Lactated Ringer's 1,000 ml @ 100 mls/hr Q10H IV 10/14/18 14:15 10/14/18 15:10 DC 10/14/18 14:00 Meperidine HCl (Demerol) 12.5 mg Q5MP PRN IV SHIVERING 10/13/18 16:00 10/13/18 17:00 DC Morphine Sulfate (Morphine Sulfate Inj) 4 mg Q4H PRN IV PAIN 10/13/18 17:15 10/14/18 14:43 DC 10/13/18 23:02 Ondansetron HCl (ZOFRAN INJection) 4 mg Q4HP PRN IV NAUSEA OR VOMITING 10/13/18 16:00 10/13/18 17:00 DC Ondansetron HCl (ZOFRAN INJection) 4 mg Q4HP PRN IV NAUSEA OR VOMITING 10/14/18 14:15 10/14/18 15:11 DC Ondansetron HCl (ZOFRAN INJection) 4 mg Q6H PRN IV NAUSEA 10/13/18 17:15 10/14/18 14:43 DC 10/13/18 23:02 Ondansetron HCl (ZOFRAN INJection) 4 mg Q8HP PRN IV NAUSEA 10/14/18 14:45 Oxycodone HCl (Roxicodone, Oxyir) 5 mg ASDIRECTED PRN PO MILD/MODERATE PAIN (PS 1-7) 10/13/18 16:00 10/13/18 17:00 DC 10/13/18 15:55 Oxycodone/ Acetaminophen (Percocet 5mg/ 325mg Tablet) 1 tab ASDIRECTED PRN PO MILD/MODERATE PAIN (PS 1-7) 10/14/18 14:15 10/14/18 15:11 DC Oxycodone/ Acetaminophen (Percocet 5mg/ 325mg Tablet) 1 tab Q4H PRN PO MODERATE PAIN 10/13/18 17:15 10/14/18 14:43 DC 10/13/18 20:57 Oxycodone/ Acetaminophen (Percocet 5mg/ 325mg Tablet) 1 tab Q4HP PRN PO PAIN 10/14/18 14:45 10/15/18 00:33 Sodium Chloride 1,000 ml @ 100 mls/hr Q10H IV 10/14/18 01:15 10/14/18 09:02 DC 10/14/18 01:31 Sodium Chloride 1,000 ml @ 100 mls/hr Q10H IV 10/14/18 09:00 10/14/18 14:39 DC 10/14/18 11:09 Allergies Coded Allergies: No Known Allergies (Unverified , 10/13/18) Objective Physical Examination Examination GENERAL APPEARANCE:Patient seen, laying in bed, awake, alert, and oriented. Comfortable, in no acute distress. SKIN: Warm and moist. Incision lower abdomen intact. Abdomen soft, no expanding masses. Scrotum mild swelling, testicles palpable in normal anatomic position in the scrotum. Minimal ecchymosis base of the scrotum right side, non expanding. Silva in place, clear yellow urine. LUNGS: Clear to auscultation bilaterally. No wheezing appreciated. HEART: No chest wall abnormalities. Regular rate and rhythm with no murmurs appreciated. ABDOMEN: Abdomen is soft NT, stable mild ecchymosis along the incision, not changed. Vital Signs Vital Signs Date Time Temp Pulse Resp B/P (MAP) Pulse Ox O2 Delivery O2 Flow Rate FiO2 10/15/18 00:33 18 10/14/18 23:59 98.7 66 135/63 (87) 94 10/13/18 16:05 2 I&Os I&O- Last 24 Hours up to 6 AM 10/15/18 06:00 Intake Total 1840 ml Output Total 2120 ml Balance -280 ml Laboratory Data Labs 24H Laboratory Tests 2 10/14/18 05:26: Nucleated Red Blood Cells % (auto) 0.0, Anion Gap 5L, Blood Urea Nitrogen 20H, Creatinine 0.96, Sodium Level 137, Potassium Level 4.7, Chloride Level 104, Carbon Dioxide Level 28, Calcium Level 8.3L, Aspartate Amino Transf (AST/SGOT) 9, Alanine Aminotransferase (ALT/SGPT) 13, Alkaline Phosphatase 59, Total Bilirubin 1.1H, Total Protein 5.8L, Albumin 3.2, Albumin/Globulin Ratio 1.23 10/14/18 15:24: Nucleated Red Blood Cells % (auto) 0.0, Anion Gap 6L, Blood Urea Nitrogen 21H, Creatinine 0.90, Sodium Level 140, Potassium Level 4.3, Chloride Level 106, Carbon Dioxide Level 28, Calcium Level 7.7L, Immature Granulocyte % (Auto) 0.4, White Blood Count 9.5, Red Blood Count 3.01L, Hemoglobin 9.2L, Hematocrit 26.8L, Mean Corpuscular Volume 89.0, Mean Corpuscular Hemoglobin 30.6, Mean Corpuscular Hemoglobin Concent 34.3, Red Cell Distribution Width 13.5, Platelet Count 206, Neutrophils (%) (Auto) 82.0H, Lymphocytes (%) (Auto) 10.3L, Monocytes (%) (Auto) 7.1H, Eosinophils (%) (Auto) 0.1, Basophils (%) (Auto) 0.1, Neutrophils # (Auto) 7.8H, Lymphocytes # (Auto) 1.0L, Monocytes # (Auto) 0.7, Eosinophils # (Auto) 0.0, Basophils # (Auto) 0.0 CBC/BMP Laboratory Tests 10/14/18 05:26 Red Blood Count 3.70 L, Mean Corpuscular Volume 88.6, Mean Corpuscular Hemoglobin 30.0, Mean Corpuscular Hemoglobin Concent 33.8, Red Cell Distribution Width 13.3, Calcium Level 8.3 L, Aspartate Amino Transf (AST/SGOT) 9, Alanine Aminotransferase (ALT/SGPT) 13, Alkaline Phosphatase 59, Total Bilirubin 1.1 H, Total Protein 5.8 L, Albumin 3.2 10/14/18 15:24 Red Blood Count 3.01 L, Mean Corpuscular Volume 89.0, Mean Corpuscular Hemoglobin 30.6, Mean Corpuscular Hemoglobin Concent 34.3, Red Cell Distribution Width 13.5, Calcium Level 7.7 L, Neutrophils (%) (Auto) 82.0 H, Lymphocytes (%) (Auto) 10.3 L, Monocytes (%) (Auto) 7.1 H, Eosinophils (%) (Auto) 0.1, Basophils (%) (Auto) 0.1, Neutrophils # (Auto) 7.8 H, Lymphocytes # (Auto) 1.0 L, Monocytes # (Auto) 0.7, Eosinophils # (Auto) 0.0, Basophils # (Auto) 0.0 Microbiology Microbiology 10/14/18 Wound Culture, Received Pending 10/14/18 Anaerobic Culture, Received Pending Impression S/p panniculectomy, evacuation hematoma. Expected scrotal swelling observed. Normal position of the testicles. ALVERTO drainage serosanguinous, improving.l No expanding hematomas Patient reassured. Elevate scrotum. D/c Silva at 6 am. All findings and plan discussed with patient. Labs in am. Plan / VTE VTE Prophylaxis Ordered?: Yes (SCD in bed) VTE Exclusion Mechanical Proph: Low Risk for VTE VTE Exclusion Pharmacological: At Low Risk for VTE Plan / Urinary Catheter Reason for insertion/continuin: Acute obstruct/retention PINO FARRELL DO Oct 15, 2018 01:18
[2018-10-15 04:00] VITALS: BP 125/59
[2018-10-15 04:15] LABS: BASO % 0.1 % (0.0-1.0); HEMATOCRIT 23.7 % (42.0-52.0); LYMPH # 2.2 10^3/uL (1.5-6.5); LYMPH % 19.4 % (24.0-44.0); MEAN CORPUSCULAR HEMOGLOBIN 29.4 pg (27.0-33.0); MEAN CORPUSCULAR HGB CONC 33.8 g/dl (32.0-36.5); MEAN CORPUSCULAR VOLUME 87.1 fl (80.0-96.0); MONO # 1.4 10^3/uL (0.0-0.8); MONO % 12.2 % (0.0-5.0); NEUTROPHILS # 7.7 10^3/uL (1.8-7.7); NEUTROPHILS % 67.9 % (36.0-66.0); PLATELET COUNT, AUTOMATED 230 10^3/uL (150-450); RED BLOOD COUNT 2.72 10^6/uL (4.30-6.10); WHITE BLOOD COUNT 11.3 10^3/uL (4.0-10.0)
[2018-10-15 04:22] LABS: BLOOD UREA NITROGEN 15 MG/DL (7-18); CARBON DIOXIDE LEVEL 30 MEQ/L (21-32); CHLORIDE LEVEL 104 MEQ/L (98-107); CREATININE FOR GFR 0.88 MG/DL (0.70-1.30); GLUCOSE, FASTING 112 MG/DL (70-100); SODIUM LEVEL 137 MEQ/L (136-145)
[2018-10-15] MEDS: LR 1,000 ML IV SCH (04:32)
[2018-10-15] MEDS: ceFAZolin SOD 1 GM in D5W MINI-BAG PLUS 50 ML IV SCH ×3 (05:42→20:03)
--- NOTE | 2018-10-15 07:38 | IPNPDOC ---
Subjective General Date/Time Seen The patient was seen on 10/15/18 at 07:32. Subject Chief Complaint/History The patient is a 18-year-old male admitted with a reason for visit of Panniculitis, evacuation of hematoma. No complains this morning. Pain controlled. Minimal post procedural abdominal pain along incision. No increase in scrotal swelling. Silva removed. Tolerating fluids. No CP, SOB, dizziness. Current Medications Current Medications Current Medications Medications (Trade) Dose Ordered Sig/Harjeet Route PRN Reason Start Time Stop Time Status Last Admin Dose Admin Acetaminophen (Tylenol Tab) 650 mg Q4H PRN PO PAIN OR FEVER 10/13/18 17:00 10/14/18 14:43 DC Cefazolin Sodium 1 gm/Dextrose 50 ml @ 100 mls/hr Q8H IV 10/13/18 21:00 10/14/18 05:29 DC 10/14/18 05:35 Cefazolin Sodium 1 gm/Dextrose 50 ml @ 100 mls/hr Q8H IV 10/14/18 13:00 10/14/18 14:43 DC Cefazolin Sodium 1 gm/Dextrose 50 ml @ 100 mls/hr Q8H IV 10/14/18 21:00 10/15/18 05:42 Fentanyl Citrate (Sublimaze) 25 mcg Q5MP PRN IV MODERATE PAIN (PS 4-7) 10/13/18 16:00 10/13/18 17:00 DC Fentanyl Citrate (Sublimaze) 25 mcg Q5MP PRN IV MODERATE PAIN (PS 4-7) 10/14/18 14:15 10/14/18 15:10 DC Hydromorphone HCl (Dilaudid) 0.2 mg Q5MP PRN IV MODERATE/SEVERE PAIN (PS 5-10) 10/14/18 14:15 10/14/18 15:11 DC Lactated Ringer's 1,000 ml @ 75 mls/hr [id number] IV 10/14/18 14:45 10/15/18 06:53 DC 10/15/18 04:32 Lactated Ringer's 1,000 ml @ 100 mls/hr Q10H IV 10/13/18 16:00 10/13/18 17:00 DC 10/13/18 15:39 Lactated Ringer's 1,000 ml @ 100 mls/hr Q10H IV 10/14/18 14:15 10/14/18 15:10 DC 10/14/18 14:00 Meperidine HCl (Demerol) 12.5 mg Q5MP PRN IV SHIVERING 10/13/18 16:00 10/13/18 17:00 DC Morphine Sulfate (Morphine Sulfate Inj) 4 mg Q4H PRN IV PAIN 10/13/18 17:15 10/14/18 14:43 DC 10/13/18 23:02 Ondansetron HCl (ZOFRAN INJection) 4 mg Q4HP PRN IV NAUSEA OR VOMITING 10/13/18 16:00 10/13/18 17:00 DC Ondansetron HCl (ZOFRAN INJection) 4 mg Q4HP PRN IV NAUSEA OR VOMITING 10/14/18 14:15 10/14/18 15:11 DC Ondansetron HCl (ZOFRAN INJection) 4 mg Q6H PRN IV NAUSEA 10/13/18 17:15 10/14/18 14:43 DC 10/13/18 23:02 Ondansetron HCl (ZOFRAN INJection) 4 mg Q8HP PRN IV NAUSEA 10/14/18 14:45 Oxycodone HCl (Roxicodone, Oxyir) 5 mg ASDIRECTED PRN PO MILD/MODERATE PAIN (PS 1-7) 10/13/18 16:00 10/13/18 17:00 DC 10/13/18 15:55 Oxycodone/ Acetaminophen (Percocet 5mg/ 325mg Tablet) 1 tab ASDIRECTED PRN PO MILD/MODERATE PAIN (PS 1-7) 10/14/18 14:15 10/14/18 15:11 DC Oxycodone/ Acetaminophen (Percocet 5mg/ 325mg Tablet) 1 tab Q4H PRN PO MODERATE PAIN 10/13/18 17:15 10/14/18 14:43 DC 10/13/18 20:57 Oxycodone/ Acetaminophen (Percocet 5mg/ 325mg Tablet) 1 tab Q4HP PRN PO PAIN 10/14/18 14:45 10/15/18 00:33 Sodium Chloride 1,000 ml @ 100 mls/hr Q10H IV 10/14/18 01:15 10/14/18 09:02 DC 10/14/18 01:31 Sodium Chloride 1,000 ml @ 100 mls/hr Q10H IV 10/14/18 09:00 10/14/18 14:39 DC 10/14/18 11:09 Allergies Coded Allergies: No Known Allergies (Unverified , 10/13/18) Objective Physical Examination Examination GENERAL APPEARANCE:Patient seen, laying in bed, awake, alert, and oriented. Comfortable, in no acute distress. SKIN: Warm and moist. Incision intact. ALVERTO serosanguinous decrease with output. Stable post op ecchymosis. LUNGS: Clear to auscultation bilaterally. No wheezing appreciated. HEART: No chest wall abnormalities. Regular rate and rhythm with no murmurs appreciated. ABDOMEN: Abdomen is soft NT/ND. Incision site clean. Mild edema of the scrotum. Testicles in normal anatomic position. Vital Signs Vital Signs Date Time Temp Pulse Resp B/P (MAP) Pulse Ox O2 Delivery O2 Flow Rate FiO2 10/15/18 04:00 98.3 54 18 125/59 (81) 97 10/13/18 16:05 2 I&Os I&O- Last 24 Hours up to 6 AM 10/15/18 06:00 Intake Total 2690 ml Output Total 2615 ml Balance 75 ml Laboratory Data Labs 24H Laboratory Tests 2 10/14/18 15:24: Immature Granulocyte % (Auto) 0.4, White Blood Count 9.5, Red Blood Count 3.01L, Hemoglobin 9.2L, Hematocrit 26.8L, Mean Corpuscular Volume 89.0, Mean Corpuscular Hemoglobin 30.6, Mean Corpuscular Hemoglobin Concent 34.3, Red Cell Distribution Width 13.5, Platelet Count 206, Neutrophils (%) (Auto) 82.0H, Lymphocytes (%) (Auto) 10.3L, Monocytes (%) (Auto) 7.1H, Eosinophils (%) (Auto) 0.1, Basophils (%) (Auto) 0.1, Neutrophils # (Auto) 7.8H, Lymphocytes # (Auto) 1.0L, Monocytes # (Auto) 0.7, Eosinophils # (Auto) 0.0, Basophils # (Auto) 0.0, Nucleated Red Blood Cells % (auto) 0.0, Anion Gap 6L, Blood Urea Nitrogen 21H, Creatinine 0.90, Sodium Level 140, Potassium Level 4.3, Chloride Level 106, Carbon Dioxide Level 28, Calcium Level 7.7L 10/15/18 03:38: Immature Granulocyte % (Auto) 0.4, White Blood Count 11.3H, Red Blood Count 2.72L, Hemoglobin 8.0L, Hematocrit 23.7L, Mean Corpuscular Volume 87.1, Mean Corpuscular Hemoglobin 29.4, Mean Corpuscular Hemoglobin Concent 33.8, Red Cell Distribution Width 13.7, Platelet Count 230, Neutrophils (%) (Auto) 67.9H, Lymphocytes (%) (Auto) 19.4L, Monocytes (%) (Auto) 12.2H, Eosinophils (%) (Auto) 0.0, Basophils (%) (Auto) 0.1, Neutrophils # (Auto) 7.7, Lymphocytes # (Auto) 2.2, Monocytes # (Auto) 1.4H, Eosinophils # (Auto) 0.0, Basophils # (Auto) 0.0, Nucleated Red Blood Cells % (auto) 0.0, Anion Gap 3L, Blood Urea Nitrogen 15, Creatinine 0.88, Sodium Level 137, Potassium Level 4.0, Chloride Level 104, Carbon Dioxide Level 30, Calcium Level 8.0L CBC/BMP Laboratory Tests 10/14/18 15:24 Red Blood Count 3.01 L, Mean Corpuscular Volume 89.0, Mean Corpuscular Hemoglobin 30.6, Mean Corpuscular Hemoglobin Concent 34.3, Red Cell Distribution Width 13.5, Neutrophils (%) (Auto) 82.0 H, Lymphocytes (%) (Auto) 10.3 L, Monocytes (%) (Auto) 7.1 H, Eosinophils (%) (Auto) 0.1, Basophils (%) (Auto) 0.1, Neutrophils # (Auto) 7.8 H, Lymphocytes # (Auto) 1.0 L, Monocytes # (Auto) 0.7, Eosinophils # (Auto) 0.0, Basophils # (Auto) 0.0, Calcium Level 7.7 L 10/15/18 03:38 Red Blood Count 2.72 L, Mean Corpuscular Volume 87.1, Mean Corpuscular Hemoglobin 29.4, Mean Corpuscular Hemoglobin Concent 33.8, Red Cell Distribution Width 13.7, Neutrophils (%) (Auto) 67.9 H, Lymphocytes (%) (Auto) 19.4 L, Monocytes (%) (Auto) 12.2 H, Eosinophils (%) (Auto) 0.0, Basophils (%) (Auto) 0.1, Neutrophils # (Auto) 7.7, Lymphocytes # (Auto) 2.2, Monocytes # (Auto) 1.4 H, Eosinophils # (Auto) 0.0, Basophils # (Auto) 0.0, Calcium Level 8.0 L Microbiology Microbiology 10/14/18 Wound Culture, Received Pending 10/14/18 Anaerobic Culture, Received Pending Impression S/p panniculectomy, evacuation of hematoma Improving H/H- will repeat. Asymptomatic, no evidence of additional bleeding D/c IVF Silva d/c Out to chair, ambulate with assistance today Echo - pending Advance diet as tolerated. Plan / VTE VTE Prophylaxis Ordered?: Yes (SCD in bed) VTE Exclusion Mechanical Proph: Low Risk for VTE VTE Exclusion Pharmacological: At Low Risk for VTE Plan / Urinary Catheter Reason for insertion/continuin: Acute obstruct/retention PINO FARRELL DO Oct 15, 2018 07:38
[2018-10-15 08:00] VITALS: BP 126/54
[2018-10-15] MEDS ORDERED: SLF 3 ML SYR IV PRN (08:00)
[2018-10-15] MEDS: SLF 3 ML SYR IV SCH ×2 (13:17→21:13)
[2018-10-15 14:15] VITALS: BP 133/59
--- NOTE | 2018-10-15 16:46 | IPNPDOC ---
Date Seen The patient was seen on 10/15/18. Progress Note SUBJECTIVE: Patient appeared comfortable, denying pain or any other complaints today. Request advancement of diet. Changed to soft diet this AM. s/p OR for hematoma evacuation yesterday. Hb 8.0 from 9.2 yesterday. Drains are now draining from wound adequately. OBJECTIVE PHYSICAL EXAMINATION: VITAL SIGNS: Please see below. General: No acute distress, Alert Eyes: Normal sclera, EOMI, ZACKARY HENT: Atraumatic, neck supple, moist mucous membranes Cardiovascular: Bradycardic. Pulmonary: Clear to auscultation b/l, no wheezing GI: Soft, abdominal dressing/binder in place. Skin: Warm and dry Neuro: CN grossly intact. No focal deficits. Strengths equal b/l. Psych: oriented x 3 LABORATORY DATA, IMAGING STUDIES, MICROBIOLOGY: Please see below. DVT prophylaxis ordered?: SCD ASSESSMENT AND PLAN: 1. s/p Panniculectomy - Initial procedure 10/13 with OR for hematoma evacuation 10/14. - Patient appear comfortable without any complaints. - Plastic surgery following. - c/w Cefazolin for now. Repeat Hb 9.2 this afternoon from 11.1 this AM. - c/w to monitor daily CBCs and transfuse as needed. - Advance diet as tolerated. 2. Sinus bradycardia - Asymptomatic. Had discussed with cardiology, not uncommon in patients who has had significant rapid weight loss. - ECHO noted with no significant anomalies. Discussed with cardiology. - Will not likely need any intervention as he is asymptomatic. 3. Anemia - Likely dilutional with component of blood loss from procedure. - Monitor CBC. Does not warrant transfusion at this time. DISPOSITION: Home when stable. VS, I&O, 24H, [facility] Vital Signs/I&O Vital Signs Date Time Temp Pulse Resp B/P (MAP) Pulse Ox O2 Delivery O2 Flow Rate FiO2 10/15/18 14:15 99.1 83 22 133/59 (83) 95 10/13/18 16:05 2 I&O- Last 24 Hours up to 6 AM 10/15/18 06:00 Intake Total 2690 ml Output Total 2615 ml Balance 75 ml Laboratory Data 24H LABS Laboratory Tests 2 10/15/18 03:38: Immature Granulocyte % (Auto) 0.4, White Blood Count 11.3H, Red Blood Count 2.72L, Hemoglobin 8.0L, Hematocrit 23.7L, Mean Corpuscular Volume 87.1, Mean Corpuscular Hemoglobin 29.4, Mean Corpuscular Hemoglobin Concent 33.8, Red Cell Distribution Width 13.7, Platelet Count 230, Neutrophils (%) (Auto) 67.9H, Lymphocytes (%) (Auto) 19.4L, Monocytes (%) (Auto) 12.2H, Eosinophils (%) (Auto) 0.0, Basophils (%) (Auto) 0.1, Neutrophils # (Auto) 7.7, Lymphocytes # (Auto) 2.2, Monocytes # (Auto) 1.4H, Eosinophils # (Auto) 0.0, Basophils # (Auto) 0.0, Nucleated Red Blood Cells % (auto) 0.0, Anion Gap 3L, Blood Urea Nitrogen 15, Creatinine 0.88, Sodium Level 137, Potassium Level 4.0, Chloride Level 104, Ca rbon Dioxide Level 30, Calcium Level 8.0L CBC/BMP Laboratory Tests 10/15/18 03:38 Red Blood Count 2.72 L, Mean Corpuscular Volume 87.1, Mean Corpuscular Hemoglobin 29.4, Mean Corpuscular Hemoglobin Concent 33.8, Red Cell Distribution Width 13.7, Neutrophils (%) (Auto) 67.9 H, Lymphocytes (%) (Auto) 19.4 L, Monocytes (%) (Auto) 12.2 H, Eosinophils (%) (Auto) 0.0, Basophils (%) (Auto) 0.1, Neutrophils # (Auto) 7.7, Lymphocytes # (Auto) 2.2, Monocytes # (Auto) 1.4 H, Eosinophils # (Auto) 0.0, Basophils # (Auto) 0.0, Calcium Level 8.0 L Microbiology Microbiology 10/14/18 Wound Culture, Unverified Pending 10/14/18 Anaerobic Culture, Unverified Pending PAULETTE JOHNSON MD Oct 15, 2018 16:46
[2018-10-15 17:54] LABS: INR 1.19; PROTHROMBIN TIME 14.8 SECONDS (11.8-14.0)
[2018-10-15 17:55] LABS: PARTIAL THROMBOPLASTIN TIME 31.8 SECONDS (25.0-38.4)
[2018-10-15 18:00] VITALS: BP 136/51
--- NOTE | 2018-10-15 18:48 | RO ---
DATE OF PROCEDURE: 10/14/2018 PREPROCEDURE DIAGNOSIS: Abdominal incision, hematoma. POSTPROCEDURE DIAGNOSIS: Abdominal incision, hematoma. PROCEDURE: Exploration lower abdominal incision, evacuation of a hematoma. SURGEON: Freda Barksdale DO ANESTHESIA: General. SPECIMENS SENT: Hematoma and cultures from the hematoma. BLOOD LOSS: No new acute blood loss. The hematoma measured about 800 mL. No replacement needed. He had two 10 mm Tristin-Wei drains placed. No complications during surgery. Stable condition after the surgery. DESCRIPTION OF PROCEDURE: This is a 18-year-old male who underwent panniculectomy last night. The patient developed hematoma overnight which was diagnosed by physical examination. He is completely stable and asymptomatic otherwise with normal vital signs. I have spoken to the patient, explained that the hematoma needs to be removed, and he is ready to proceed. All risks and benefits and alternatives were discussed with the patient and fully agreed to have the exploration of the wound and evacuation of hematoma done. He was brought into the operating room, placed in supine position. His antibiotics were scheduled for 1:30 pm, so they were given at the scheduled time. Sequential stockings were placed on the lower calves. General anesthesia was induced. We inserted the Silva catheter prior to the operation with clear yellow urine and then it will remain with the patient for postoperative period at this time for monitoring and comfort. He was prepped and draped in the usual sterile fashion. We did remove the old ALVERTO drains, which were not draining properly, and the old incision was completely intact. We opened up the sutures and the hematoma was identified. It is all subcutaneous and muscle layer was never violated. After hematoma was evacuated, cultures were taken of the hematoma, and the wound was irrigated with copious amount of bacitracin irrigation solution, 3 liters, until clear irrigation. No active bleeding was identified. There was a very small venous bleed that was found along the left side of rectus sheath, which was suture ligated. No other definitive bleeding was identified. The wound was then closed again in layers with interrupted #0 Vicryl and #3-0 Monocryl sutures. Two new 10 mm Tristin-Wei drains were placed through the lateral portion of that incision. Then, we continued our closure with the #3-0 Monocryl sutures. The drains were sutured in place as well. Prineo dressing was placed on the incision site with a bulky dressing and abdominal binder. Patient extubated in the operating room without any difficulties, transferred to the recovery room in stable condition. The patient was transferred to the recovery room in stable condition. CECILIA
[2018-10-15 20:53] VITALS: BP 123/41
[2018-10-16] MEDS: ceFAZolin SOD 1 GM in D5W MINI-BAG PLUS 50 ML IV SCH ×3 (05:24→20:01)
[2018-10-16] MEDS: SLF 3 ML SYR IV SCH ×3 (05:24→21:12)
[2018-10-16 06:07] LABS: BASO % 0.3 % (0.0-1.0); EOS # 0.1 10^3/uL (0.0-0.50); EOS % 0.9 % (0.0-3.0); HEMATOCRIT 21.7 % (42.0-52.0); HEMOGLOBIN 7.1 g/dl (13.5-17.5); LYMPH # 2.5 10^3/uL (1.5-6.5); LYMPH % 42.1 % (24.0-44.0); MEAN CORPUSCULAR HEMOGLOBIN 29.2 pg (27.0-33.0); MEAN CORPUSCULAR HGB CONC 32.7 g/dl (32.0-36.5); MEAN CORPUSCULAR VOLUME 89.3 fl (80.0-96.0); MONO # 0.7 10^3/uL (0.0-0.8); MONO % 11.9 % (0.0-5.0); NEUTROPHILS # 2.6 10^3/uL (1.8-7.7); NEUTROPHILS % 44.3 % (36.0-66.0); PLATELET COUNT, AUTOMATED 157 10^3/uL (150-450); RED BLOOD COUNT 2.43 10^6/uL (4.30-6.10); WHITE BLOOD COUNT 5.9 10^3/uL (4.0-10.0)
[2018-10-16 06:25] VITALS: BP 128/48
[2018-10-16 06:26] VITALS: BP 128/48
[2018-10-16 06:31] LABS: BLOOD UREA NITROGEN 11 MG/DL (7-18); CALCIUM LEVEL 8.1 MG/DL (8.5-10.1); CARBON DIOXIDE LEVEL 31 MEQ/L (21-32); CHLORIDE LEVEL 104 MEQ/L (98-107); CREATININE FOR GFR 0.81 MG/DL (0.70-1.30); GLUCOSE, FASTING 96 MG/DL (70-100); POTASSIUM SERUM 3.7 MEQ/L (3.5-5.1); SODIUM LEVEL 141 MEQ/L (136-145)
[2018-10-16] MEDS: PERCOCET 5MG/325MG TAB PO PRN ×2 (07:50→17:49)
--- NOTE | 2018-10-16 08:54 | IPNPDOC ---
Subjective General Date/Time Seen The patient was seen on 10/16/18 at 07:40. Subject Chief Complaint/History The patient is a 18-year-old male admitted with a reason for visit of Panniculitis S/p Panniculectomy POD 3, evacuation of abdominal incision hematoma POD 2. Patient is feeling well, ambulating, tolerating diet, voiding. Denies CP, SOB, abdominal pain. Swelling of the scrotum with ecchymosis. No difficulty urinating. Current Medications Current Medications Current Medications Medications (Trade) Dose Ordered Sig/Harjeet Route PRN Reason Start Time Stop Time Status Last Admin Dose Admin Acetaminophen (Tylenol Tab) 650 mg Q4H PRN PO PAIN OR FEVER 10/13/18 17:00 10/14/18 14:43 DC Cefazolin Sodium 1 gm/Dextrose 50 ml @ 100 mls/hr Q8H IV 10/13/18 21:00 10/14/18 05:29 DC 10/14/18 05:35 Cefazolin Sodium 1 gm/Dextrose 50 ml @ 100 mls/hr Q8H IV 10/14/18 13:00 10/14/18 14:43 DC Cefazolin Sodium 1 gm/Dextrose 50 ml @ 100 mls/hr Q8H IV 10/14/18 21:00 10/16/18 05:24 Fentanyl Citrate (Sublimaze) 25 mcg Q5MP PRN IV MODERATE PAIN (PS 4-7) 10/13/18 16:00 10/13/18 17:00 DC Fentanyl Citrate (Sublimaze) 25 mcg Q5MP PRN IV MODERATE PAIN (PS 4-7) 10/14/18 14:15 10/14/18 15:10 DC Hydromorphone HCl (Dilaudid) 0.2 mg Q5MP PRN IV MODERATE/SEVERE PAIN (PS 5-10) 10/14/18 14:15 10/14/18 15:11 DC Lactated Ringer's 1,000 ml @ 75 mls/hr [id number] IV 10/14/18 14:45 10/15/18 06:53 DC 10/15/18 04:32 Lactated Ringer's 1,000 ml @ 100 mls/hr Q10H IV 10/13/18 16:00 10/13/18 17:00 DC 10/13/18 15:39 Lactated Ringer's 1,000 ml @ 100 mls/hr Q10H IV 10/14/18 14:15 10/14/18 15:10 DC 10/14/18 14:00 Meperidine HCl (Demerol) 12.5 mg Q5MP PRN IV SHIVERING 10/13/18 16:00 10/13/18 17:00 DC Morphine Sulfate (Morphine Sulfate Inj) 4 mg Q4H PRN IV PAIN 10/13/18 17:15 10/14/18 14:43 DC 10/13/18 23:02 Ondansetron HCl (ZOFRAN INJection) 4 mg Q4HP PRN IV NAUSEA OR VOMITING 10/13/18 16:00 10/13/18 17:00 DC Ondansetron HCl (ZOFRAN INJection) 4 mg Q4HP PRN IV NAUSEA OR VOMITING 10/14/18 14:15 10/14/18 15:11 DC Ondansetron HCl (ZOFRAN INJection) 4 mg Q6H PRN IV NAUSEA 10/13/18 17:15 10/14/18 14:43 DC 10/13/18 23:02 Ondansetron HCl (ZOFRAN INJection) 4 mg Q8HP PRN IV NAUSEA 10/14/18 14:45 Oxycodone HCl (Roxicodone, Oxyir) 5 mg ASDIRECTED PRN PO MILD/MODERATE PAIN (PS 1-7) 10/13/18 16:00 10/13/18 17:00 DC 10/13/18 15:55 Oxycodone/ Acetaminophen (Percocet 5mg/ 325mg Tablet) 1 tab ASDIRECTED PRN PO MILD/MODERATE PAIN (PS 1-7) 10/14/18 14:15 10/14/18 15:11 DC Oxycodone/ Acetaminophen (Percocet 5mg/ 325mg Tablet) 1 tab Q4H PRN PO MODERATE PAIN 10/13/18 17:15 10/14/18 14:43 DC 10/13/18 20:57 Oxycodone/ Acetaminophen (Percocet 5mg/ 325mg Tablet) 1 tab Q4HP PRN PO PAIN 10/14/18 14:45 10/16/18 07:50 Sodium Chloride 1,000 ml @ 100 mls/hr Q10H IV 10/14/18 01:15 10/14/18 09:02 DC 10/14/18 01:31 Sodium Chloride 1,000 ml @ 100 mls/hr Q10H IV 10/14/18 09:00 10/14/18 14:39 DC 10/14/18 11:09 Sodium Chloride (Saline Lock Flush) 2 ml ASDIRECTED PRN IV SEE LABEL COMMENTS 10/15/18 08:00 Sodium Chloride (Saline Lock Flush) 2 ml SLF IV 10/15/18 14:00 10/16/18 05:24 Allergies Coded Allergies: No Known Allergies (Unverified , 10/13/18) Objective Physical Examination Examination GENERAL APPEARANCE:Patient seen, laying in bed, awake, alert, and oriented. Comfortable, in no acute distress. SKIN: Warm and moist. Incision intact. 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 HEENT: Normocephalic, atraumatic. [place] palpebral conjunctiva, anicteric sclerae. Lips and mucosa appear moist. NECK: Supple, no thyromegaly. No obvious jugular venous distention. LUNGS: Clear to auscultation bilaterally. No wheezing appreciated. HEART: No chest wall abnormalities. Regular rate and rhythm with no murmurs appreciated. ABDOMEN: Abdomen is soft, ecchymosis around incision improving. No palpable collections lower abdomen. Minimal post op tenderness. Testicles in normal anatomic position. Scrotal swelling with ecchymosis, no tension. Vital Signs Vital Signs Date Time Temp Pulse Resp B/P (MAP) Pulse Ox O2 Delivery O2 Flow Rate FiO2 10/16/18 07:50 18 10/16/18 06:26 99.2 72 128/48 (74) 97 10/13/18 16:05 2 I&Os I&O- Last 24 Hours up to 6 AM 10/16/18 06:00 Intake Total 2180 ml Output Total 810 ml Balance 1370 ml Laboratory Data Labs 24H Laboratory Tests 2 10/15/18 17:12: Prothrombin Time 14.8H, Prothromb Time International Ratio 1.19, Activated Partial Thromboplast Time 31.8 10/16/18 05:22: Immature Granulocyte % (Auto) 0.5, White Blood Count 5.9, Red Blood Count 2.43L, Hemoglobin 7.1L, Hematocrit 21.7L, Mean Corpuscular Volume 89.3, Mean Corpuscular Hemoglobin 29.2, Mean Corpuscular Hemoglobin Concent 32.7, Red Cell Distribution Width 13.7, Platelet Count 157, Neutrophils (%) (Auto) 44.3, Lymphocytes (%) (Auto) 42.1, Monocytes (%) (Auto) 11.9H, Eosinophils (%) (Auto) 0.9, Basophils (%) (Auto) 0.3, Neutrophils # (Auto) 2.6, Lymphocytes # (Auto) 2.5, Monocytes # (Auto) 0.7, Eosinophils # (Auto) 0.1, Basophils # (Auto) 0.0, Nucleated Red Blood Cells % (auto) 0.0, Anion Gap 6L, Blood Urea Nitrogen 11, Creatinine 0.81, Sodium Level 141, Potassium Level 3.7, Chloride Level 104, Carbon Dioxide Level 31, Calcium Level 8.1L CBC/BMP Laboratory Tests 10/16/18 05:22 Red Blood Count 2.43 L, Mean Corpuscular Volume 89.3, Mean Corpuscular Hemoglobin 29.2, Mean Corpuscular Hemoglobin Concent 32.7, Red Cell Distribution Width 13.7, Neutrophils (%) (Auto) 44.3, Lymphocytes (%) (Auto) 42.1, Monocytes (%) (Auto) 11.9 H, Eosinophils (%) (Auto) 0.9, Basophils (%) (Auto) 0.3, Neutrophils # (Auto) 2.6, Lymphocytes # (Auto) 2.5, Monocytes # (Auto) 0.7, Eosinophils # (Auto) 0.1, Basophils # (Auto) 0.0, Calcium Level 8.1 L Microbiology Microbiology 10/14/18 Wound Culture, Resulted Pending 10/14/18 Anaerobic Culture - Final, Resulted Impression S/p Panniculectomy, Hematoma evacuation. H/H decreased. Transfuse 2 U PRBC. ALVERTO output consistent with post procedure (copious irrigation and hematoma evacuation). Most likely contributing for last drop in Hb. No evidence of acute bleeding. Normal PT/PTT/INR Will continue with monitoring. Patient ambulating, keep regular diet. All findings and plan discussed with patient in details. He agrees with the plan. Plan / VTE VTE Prophylaxis Ordered?: Yes (SCD in bed) VTE Exclusion Mechanical Proph: Low Risk for VTE VTE Exclusion Pharmacological: At Low Risk for VTE Plan / Urinary Catheter Reason for insertion/continuin: Acute obstruct/retention PINO FARRELL DO Oct 16, 2018 08:53
--- NOTE | 2018-10-16 13:39 | IPNPDOC ---
Date Seen The patient was seen on 10/16/18. Progress Note SUBJECTIVE: Patient reports feeling well without any complaints. Hb to 7.1 this AM, to get 2 units pRBC. Wound drainage reportedly has been slowing down. OBJECTIVE PHYSICAL EXAMINATION: VITAL SIGNS: Please see below. General: No acute distress, Alert Eyes: Normal sclera, EOMI, ZACKARY HENT: Atraumatic, neck supple, moist mucous membranes Cardiovascular: Bradycardic. Pulmonary: Clear to auscultation b/l, no wheezing GI: Soft, abdominal dressing/binder in place. Skin: Warm and dry Neuro: CN grossly intact. No focal deficits. Strengths equal b/l. Psych: oriented x 3 LABORATORY DATA, IMAGING STUDIES, MICROBIOLOGY: Please see below. DVT prophylaxis ordered?: SCD ASSESSMENT AND PLAN: 1. s/p Panniculectomy - Initial procedure 10/13 with OR for hematoma evacuation 10/14. - Patient appear comfortable without any complaints. - Plastic surgery following. - c/w Cefazolin for now. - Advance diet as tolerated. 2. Sinus bradycardia - Asymptomatic. Had discussed with cardiology, not uncommon in patients who has had significant rapid weight loss. - ECHO noted with no significant anomalies. Discussed with cardiology. - Will not likely need any intervention as he is asymptomatic. 3. Anemia Hb 7.1 this AM, to get 2 units pRBC today. - c/w to monitor daily CBCs and transfuse as needed. DISPOSITION: Home when stable. VS, [facility] Vital Signs/I&O Vital Signs Date Time Temp Pulse Resp B/P (MAP) Pulse Ox O2 Delivery O2 Flow Rate FiO2 10/16/18 08:20 18 10/16/18 06:26 99.2 72 128/48 (74) 97 10/13/18 16:05 2 I&O- Last 24 Hours up to 6 AM 10/16/18 06:00 Intake Total 2180 ml Output Total 810 ml Balance 1370 ml Laboratory Data 24H LABS Laboratory Tests 2 10/15/18 17:12: Prothrombin Time 14.8H, Prothromb Time International Ratio 1.19, Activated Partial Thromboplast Time 31.8 10/16/18 05:22: Immature Granulocyte % (Auto) 0.5, White Blood Count 5.9, Red Blood Count 2.43L, Hemoglobin 7.1L, Hematocrit 21.7L, Mean Corpuscular Volume 89.3, Mean Corpuscu lar Hemoglobin 29.2, Mean Corpuscular Hemoglobin Concent 32.7, Red Cell Distribution Width 13.7, Platelet Count 157, Neutrophils (%) (Auto) 44.3, Lymphocytes (%) (Auto) 42.1, Monocytes (%) (Auto) 11.9H, Eosinophils (%) (Auto) 0.9, Basophils (%) (Auto) 0.3, Neutrophils # (Auto) 2.6, Lymphocytes # (Auto) 2.5, Monocytes # (Auto) 0.7, Eosinophils # (Auto) 0.1, Basophils # (Auto) 0.0, Nucleated Red Blood Cells % (auto) 0.0, Anion Gap 6L, Blood Urea Nitrogen 11, Creatinine 0.81, Sodium Level 141, Potassium Level 3.7, Chloride Level 104, Carbon Dioxide Level 31, Calcium Level 8.1L CBC/BMP Laboratory Tests 10/16/18 05:22 Red Blood Count 2.43 L, Mean Corpuscular Volume 89.3, Mean Corpuscular Hemoglobin 29.2, Mean Corpuscular Hemoglobin Concent 32.7, Red Cell Distribution Width 13.7, Neutrophils (%) (Auto) 44.3, Lymphocytes (%) (Auto) 42.1, Monocytes (%) (Auto) 11.9 H, Eosinophils (%) (Auto) 0.9, Basophils (%) (Auto) 0.3, Neutrophils # (Auto) 2.6, Lymphocytes # (Auto) 2.5, Monocytes # (Auto) 0.7, Eosinophils # (Auto) 0.1, Basophils # (Auto) 0.0, Calcium Level 8.1 L Microbiology Microbiology 10/14/18 Wound Culture, Resulted Pending 10/14/18 Anaerobic Culture - Final, Resulted PAULETTE JOHNSON MD Oct 16, 2018 13:38
[2018-10-16 14:00] VITALS: BP 123/54
[2018-10-16 20:30] VITALS: BP 130/51
[2018-10-16] MEDS ORDERED: ACETAMINOPHEN TAB 650MG DOSE (2X325MG) PO PRN (21:00)
[2018-10-16 21:06] LABS: HEMATOCRIT 24.9 % (42.0-52.0); HEMOGLOBIN 8.2 g/dl (13.5-17.5)
[2018-10-17] MEDS: SLF 3 ML SYR IV SCH (05:16)
[2018-10-17] MEDS: ceFAZolin SOD 1 GM in D5W MINI-BAG PLUS 50 ML IV SCH (05:16)
[2018-10-17 05:51] LABS: BASO % 0.4 % (0.0-1.0); EOS # 0.1 10^3/uL (0.0-0.50); EOS % 2.1 % (0.0-3.0); HEMATOCRIT 24.8 % (42.0-52.0); HEMOGLOBIN 8.1 g/dl (13.5-17.5); LYMPH # 1.9 10^3/uL (1.5-6.5); LYMPH % 40.4 % (24.0-44.0); MEAN CORPUSCULAR HEMOGLOBIN 28.9 pg (27.0-33.0); MEAN CORPUSCULAR HGB CONC 32.7 g/dl (32.0-36.5); MEAN CORPUSCULAR VOLUME 88.6 fl (80.0-96.0); MONO # 0.5 10^3/uL (0.0-0.8); MONO % 9.7 % (0.0-5.0); NEUTROPHILS # 2.2 10^3/uL (1.8-7.7); NEUTROPHILS % 46.8 % (36.0-66.0); PLATELET COUNT, AUTOMATED 157 10^3/uL (150-450); WHITE BLOOD COUNT 4.8 10^3/uL (4.0-10.0)
[2018-10-17 06:10] LABS: BLOOD UREA NITROGEN 10 MG/DL (7-18); CALCIUM LEVEL 8.4 MG/DL (8.5-10.1); CARBON DIOXIDE LEVEL 32 MEQ/L (21-32); CHLORIDE LEVEL 103 MEQ/L (98-107); GLUCOSE, FASTING 95 MG/DL (70-100); POTASSIUM SERUM 3.7 MEQ/L (3.5-5.1); SODIUM LEVEL 140 MEQ/L (136-145)
[2018-10-17 06:17] VITALS: BP 129/57
[2018-10-17 06:25] VITALS: BP 130/60
--- NOTE | 2018-10-17 09:35 | IPNPDOC ---
Subjective General Date/Time Seen The patient was seen on 10/17/18 at 09:25. Subject Chief Complaint/History The patient is a 18-year-old male admitted with a reason for visit of Panniculitis, evacuation of hematoma. Doing well this morning. Ambulating, tolerating diet. No pain. ALVERTO output diminished. Patient wants to go home. Current Medications Current Medications Current Medications Medications (Trade) Dose Ordered Sig/Harjeet Route PRN Reason Start Time Stop Time Status Last Admin Dose Admin Acetaminophen (Tylenol Tab) 650 mg Q4H PRN PO PAIN OR FEVER 10/13/18 17:00 10/14/18 14:43 DC Acetaminophen (Tylenol Tab) 650 mg Q6HP PRN PO PAIN / FEVER 10/16/18 21:00 10/16/18 21:26 Cefazolin Sodium 1 gm/Dextrose 50 ml @ 100 mls/hr Q8H IV 10/13/18 21:00 10/14/18 05:29 DC 10/14/18 05:35 Cefazolin Sodium 1 gm/Dextrose 50 ml @ 100 mls/hr Q8H IV 10/14/18 13:00 10/14/18 14:43 DC Cefazolin Sodium 1 gm/Dextrose 50 ml @ 100 mls/hr Q8H IV 10/14/18 21:00 10/17/18 05:16 Fentanyl Citrate (Sublimaze) 25 mcg Q5MP PRN IV MODERATE PAIN (PS 4-7) 10/13/18 16:00 10/13/18 17:00 DC Fentanyl Citrate (Sublimaze) 25 mcg Q5MP PRN IV MODERATE PAIN (PS 4-7) 10/14/18 14:15 10/14/18 15:10 DC Hydromorphone HCl (Dilaudid) 0.2 mg Q5MP PRN IV MODERATE/SEVERE PAIN (PS 5-10) 10/14/18 14:15 10/14/18 15:11 DC Lactated Ringer's 1,000 ml @ 75 mls/hr [id number] IV 10/14/18 14:45 10/15/18 06:53 DC 10/15/18 04:32 Lactated Ringer's 1,000 ml @ 100 mls/hr Q10H IV 10/13/18 16:00 10/13/18 17:00 DC 10/13/18 15:39 Lactated Ringer's 1,000 ml @ 100 mls/hr Q10H IV 10/14/18 14:15 10/14/18 15:10 DC 10/14/18 14:00 Meperidine HCl (Demerol) 12.5 mg Q5MP PRN IV SHIVERING 10/13/18 16:00 10/13/18 17:00 DC Morphine Sulfate (Morphine Sulfate Inj) 4 mg Q4H PRN IV PAIN 10/13/18 17:15 10/14/18 14:43 DC 10/13/18 23:02 Ondansetron HCl (ZOFRAN INJection) 4 mg Q4HP PRN IV NAUSEA OR VOMITING 10/13/18 16:00 10/13/18 17:00 DC Ondansetron HCl (ZOFRAN INJection) 4 mg Q4HP PRN IV NAUSEA OR VOMITING 10/14/18 14:15 10/14/18 15:11 DC Ondansetron HCl (ZOFRAN INJection) 4 mg Q6H PRN IV NAUSEA 10/13/18 17:15 10/14/18 14:43 DC 10/13/18 23:02 Ondansetron HCl (ZOFRAN INJection) 4 mg Q8HP PRN IV NAUSEA 10/14/18 14:45 Oxycodone HCl (Roxicodone, Oxyir) 5 mg ASDIRECTED PRN PO MILD/MODERATE PAIN (PS 1-7) 10/13/18 16:00 10/13/18 17:00 DC 10/13/18 15:55 Oxycodone/ Acetaminophen (Percocet 5mg/ 325mg Tablet) 1 tab ASDIRECTED PRN PO MILD/MODERATE PAIN (PS 1-7) 10/14/18 14:15 10/14/18 15:11 DC Oxycodone/ Acetaminophen (Percocet 5mg/ 325mg Tablet) 1 tab Q4H PRN PO MODERATE PAIN 10/13/18 17:15 10/14/18 14:43 DC 10/13/18 20:57 Oxycodone/ Acetaminophen (Percocet 5mg/ 325mg Tablet) 1 tab Q4HP PRN PO PAIN 10/14/18 14:45 10/16/18 17:49 Sodium Chloride 1,000 ml @ 100 mls/hr Q10H IV 10/14/18 01:15 10/14/18 09:02 DC 10/14/18 01:31 Sodium Chloride 1,000 ml @ 100 mls/hr Q10H IV 10/14/18 09:00 10/14/18 14:39 DC 10/14/18 11:09 Sodium Chloride (Saline Lock Flush) 2 ml ASDIRECTED PRN IV SEE LABEL COMMENTS 10/15/18 08:00 Sodium Chloride (Saline Lock Flush) 2 ml SLF IV 10/15/18 14:00 10/17/18 05:16 Allergies Coded Allergies: No Known Allergies (Unverified , 10/13/18) Objective Physical Examination Examination GENERAL APPEARANCE:Patient seen, laying in bed, awake, alert, and oriented. Comfortable, in no acute distress. SKIN: Warm and moist. Incision intact., ALVERTO serosanguinous, drainage 25cc R, 15cc L today. Scrotal swelling and ecchymosis improved. Ecchymosis around incision resolved. Slight incisional tenderness. LUNGS: Clear to auscultation bilaterally. No wheezing appreciated. HEART: No chest wall abnormalities. Regular rate and rhythm with no murmurs appreciated. ABDOMEN: Abdomen is soft, flaps viable, well perfused. Vital Signs Vital Signs Date Time Temp Pulse Resp B/P (MAP) Pulse Ox O2 Delivery O2 Flow Rate FiO2 10/17/18 06:20 44 98 10/17/18 06:17 98.5 18 129/57 (81) 10/13/18 16:05 2 I&Os I&O- Last 24 Hours up to 6 AM 10/17/18 06:00 Intake Total 1860 ml Output Total 160 ml Balance 1700 ml Laboratory Data Labs 24H Laboratory Tests 2 10/17/18 05:23: Immature Granulocyte % (Auto) 0.6, White Blood Count 4.8, Red Blood Count 2.80L, Hemoglobin 8.1L, Hematocrit 24.8L, Mean Corpuscular Volume 88.6, Mean Corpuscular Hemoglobin 28.9, Mean Corpuscular Hemoglobin Concent 32.7, Red Cell Distribution Width 13.5, Platelet Count 157, Neutrophils (%) (Auto) 46.8, Lymphocytes (%) (Auto) 40.4, Monocytes (%) (Auto) 9.7H, Eosinophils (%) (Auto) 2.1, Basophils (%) (Auto) 0.4, Neutrophils # (Auto) 2.2, Lymphocytes # (Auto) 1.9, Monocytes # (Auto) 0.5, Eosinophils # (Auto) 0.1, Basophils # (Auto) 0.0, Nucleated Red Blood Cells % (auto) 0.0, Anion Gap 5L, Blood Urea Nitrogen 10, Creatinine 0.80, Sodium Level 140, Potassium Level 3.7, Chloride Level 103, Carbon Dioxide Level 32, Calcium Level 8.4L CBC/BMP Laboratory Tests 10/16/18 20:45 10/17/18 05:23 Red Blood Count 2.80 L, Mean Corpuscular Volume 88.6, Mean Corpuscular Hemoglobin 28.9, Mean Corpuscular Hemoglobin Concent 32.7, Red Cell Distribution Width 13.5, Neutrophils (%) (Auto) 46.8, Lymphocytes (%) (Auto) 40.4, Monocytes (%) (Auto) 9.7 H, Eosinophils (%) (Auto) 2.1, Basophils (%) (Auto) 0.4, Neutrophils # (Auto) 2.2, Lymphocytes # (Auto) 1.9, Monocytes # (Auto) 0.5, Eosinophils # (Auto) 0.1, Basophils # (Auto) 0.0, Calcium Level 8.4 L Microbiology Microbiology 10/14/18 Wound Culture, Resulted Pending 10/14/18 Anaerobic Culture - Final, Resulted Impression S/p panniculectomy, hematoma evacuation. Recovering well. S/p transfusion, tolerated well, much improved. Asymptomatic, start with PO iron. Rx for Iron, Colace, Percocet to be sent for home Keep binder on ALVERTO monitoring at home F/up plastic surgery 10/21/18 at 8:45 am D/c instructions given to patient, he is comfortable to be discharged. Plan / VTE VTE Prophylaxis Ordered?: Yes (SCD in bed) VTE Exclusion Mechanical Proph: Low Risk for VTE VTE Exclusion Pharmacological: At Low Risk for VTE Plan / Urinary Catheter Reason for insertion/continuin: Acute obstruct/retention PINO FARRELL DO Oct 17, 2018 09:35
[2018-10-17] MEDS ORDERED: FERR325T3 PO ×2 (09:54→11:27)
[2018-10-17] MEDS ORDERED: PERCOCET PO (09:54)
[2018-10-17] MEDS ORDERED: COLA100C5 PO ×2 (09:54→11:27)
--- NOTE | 2018-10-17 10:00 | DS.PDOC ---
Discharge Summary General Date of Admission Oct 15, 2018 at 19:08 Date of Discharge 10/17/18 Discharge Summary PROCEDURES PERFORMED DURING STAY: Panniculectomy Hematoma evacuation ADMITTING DIAGNOSES: 1. s/p Panniculectomy DISCHARGE DIAGNOSES: 1. s/p Panniculectomy 2. Anemia 3. Intrabdominal hematoma COMPLICATIONS/CHIEF COMPLAINT: Panniculitis. HISTORY OF PRESENT ILLNESS: "This is 18 years old white male with past medical history of no medical disease has lasted more than 100 pounds in 6 months and decided to come and get a panniculectomy done by Dr. George. Surgery went very well without any problems and complication until was discovered by anesthesia that his heart rate was sometimes in low 30s and we called in to admit patient for observation. As per patient, he does not have any history of any medical disease including heart disease, but he feels dizzy once in a while when he is playing sports. Denies any chest pain, shortness of breath, nausea, vomiting or loss of consciousness." HOSPITAL COURSE: Patient developed a hematoma post panniculectomy and anemia requiring hematoma evacuation in OR by plastic surgery, and received 2 units pRBC during course of admission. He has been doing well without any significant complaints including pain. Clear for discharge per plastic surgery. Will discharge to f/u with PMD and Dr. Barksdale (friday at 8:45AM). Question of possible coagulopathy as well given bleeding and anemia from this type of surgery. may benefit from Oncology evaluation or workup as outpatient. Started on iron tablets. DISCHARGE MEDICATIONS: Please see below. ALLERGIES: Please see below. PHYSICAL EXAMINATION ON DISCHARGE: VITAL SIGNS: Please see below. General: No acute distress, Alert Eyes: Normal sclera, EOMI, ZACKARY HENT: Atraumatic, neck supple, moist mucous membranes Cardiovascular: Bradycardic. Pulmonary: Clear to auscultation b/l, no wheezing GI: Soft, abdominal dressing/binder in place. Skin: Warm and dry. Scrotal swelling with changes consistent with resolving bruise. Neuro: CN grossly intact. No focal deficits. Strengths equal b/l. Psych: oriented x 3 LABORATORY DATA: Please see below. ACTIVITY: [As tolerated]. DIET: Regular DISCHARGE PLAN: f/u PMD and plastic surgery start on iron supplements DISPOSITION: [place] base. DISCHARGE INSTRUCTIONS: f/u PMD and plastic surgery start on iron supplements ITEMS TO FOLLOWUP ON ON OUTPATIENT: None DISCHARGE CONDITION: [Stable]. TIME SPENT ON DISCHARGE: 32 minutes. Vital Signs/I&Os Vital Signs Date Time Temp Pulse Resp B/P (MAP) Pulse Ox O2 Delivery O2 Flow Rate FiO2 10/17/18 06:20 44 98 10/17/18 06:17 98.5 18 129/57 (81) 10/13/18 16:05 2 I&O- Last 24 Hours up to 6 AM 10/17/18 06:00 Intake Total 1860 ml Output Total 160 ml Balance 1700 ml Laboratory Data Labs 24H Laboratory Tests 2 10/17/18 05:23: Immature Granulocyte % (Auto) 0.6, White Blood Count 4.8, Red Blood Count 2.80L, Hemoglobin 8.1L, Hematocrit 24.8L, Mean Corpuscular Volume 88.6, Mean Corpuscular Hemoglobin 28.9, Mean Corpuscular Hemoglobin Concent 32.7, Red Cell Distribution Width 13.5, Platelet Count 157, Neutrophils (%) (Auto) 46.8, Lymphocytes (%) (Auto) 40.4, Monocytes (%) (Auto) 9.7H, Eosinophils (%) (Auto) 2.1, Basophils (%) (Auto) 0.4, Neutrophils # (Auto) 2.2, Lymphocytes # (Auto) 1.9, Monocytes # (Auto) 0.5, Eosinophils # (Auto) 0.1, Basophils # (Auto) 0.0, Nucleated Red Blood Cells % (auto) 0.0, Anion Gap 5L, Blood Urea Nitrogen 10, Creatinine 0.80, Sodium Level 140, Potassium Level 3.7, Chloride Level 103, Carbon Dioxide Level 32, Calcium Level 8.4L CBC/BMP Laboratory Tests 10/16/18 20:45 10/17/18 05:23 Red Blood Count 2.80 L, Mean Corpuscular Volume 88.6, Mean Corpuscular Hemoglobin 28.9, Mean Corpuscular Hemoglobin Concent 32.7, Red Cell Distribution Width 13.5, Neutrophils (%) (Auto) 46.8, Lymphocytes (%) (Auto) 40.4, Monocytes (%) (Auto) 9.7 H, Eosinophils (%) (Auto) 2.1, Basophils (%) (Auto) 0.4, Neutrophils # (Auto) 2.2, Lymphocytes # (Auto) 1.9, Monocytes # (Auto) 0.5, Eosinophils # (Auto) 0.1, Basophils # (Auto) 0.0, Calcium Level 8.4 L Microbiology Microbiology 10/14/18 Wound Culture, Resulted Pending 10/14/18 Anaerobic Culture - Final, Resulted Discharge Medications Scheduled Ferrous Sulfate (Ferrous Sulfate) 325 Mg Tablet.dr, 1 TAB PO TID Scheduled PRN Docusate Sodium (Colace) 100 Mg Capsule, 100 MG PO BID PRN for CONSTIPATION Oxycodone/Acetaminophen (Oxycodone-Acetaminophen 5-325) 1 Each Tablet, 1 TAB PO Q6HP PRN for PAIN Allergies Coded Allergies: No Known Allergies (Unverified , 10/13/18) PAULETTE JOHNSON MD Oct 17, 2018 10:00
== END 2018-10-17 11:20 | disposition home or self-care (01) | DRG 580 ==
LOC: M SDC 10:05 → M PCU 16:54 → UNDOADMOB 16:56 → M PCU 17:17 → M SDC 17:17 → UNDOFXSDCACCOM 10-15 13:45 → M MS5PR 10-15 13:45 → M PCU 10-15 13:45 → M MS5PR 10-15 13:45 → UNDOFXSDCSVC 10-15 13:45 → INTOOBSV 10-15 19:08 → OBSVTOIN 10-15 19:08 → M SDC 10-16 11:05 → M MS5PR 10-16 11:05
PROVIDERS: ADMIT Internal Medicine; ATTEND Student in an Organized Health Care Education/Training Program
PROC: 0J080ZZ Alteration of Abdomen Subcutaneous Tissue and Fascia, Open Approach (ICD-10-PCS; principal; 2018-10-13 11:50)
PROC: 0H97XZZ Drainage of Abdomen Skin, External Approach (ICD-10-PCS; 2018-10-14)
PROC: 30233N1 Transfusion of Nonautologous Red Blood Cells into Peripheral Vein, Percutaneous Approach (ICD-10-PCS; 2018-10-16)
DX: M79.3 Panniculitis, unspecified (principal); M96.840 Postprocedural hematoma of a musculoskeletal structure following a musculoskeletal system procedure; R00.1 Bradycardia, unspecified; D64.9 Anemia, unspecified

== ENCOUNTER 2019-08-01 19:46 | Emergency (ER) | payer OTHER ==
[~2019-08-01] VITALS: Ht 180.3 cm; Wt 94.1 kg
[2019-08-01 19:46] VITALS: BP 146/78
[~2019-08-01 19:46] MED LIST changes: +COLA100C5 PO; +FERR325T3 PO; -LR 1,000 ML IV ONE; +PERCOCET PO; -ceFAZolin SOD 1 GM in D5W MINI-BAG PLUS 50 ML IV ONE
[2019-08-01] MEDS ORDERED: KETOROLAC TROMETHAMINE 10 MG TAB PO ONE (21:00)
--- NOTE | 2019-08-02 06:53 | REP ---
Clinical: Left shoulder injury . Technique: Internal rotation, external rotation, and Y view. Findings: No acute fracture or dislocation. The acromioclavicular and glenohumeral joints are intact. No periarticular calcifications or degenerative changes are appreciated. Sub acromial space is normal. Surrounding soft tissues are unremarkable. Impression: Normal left shoulder radiographs. Electronically Signed by Juan J Strange MD 08/02/2019 06:45 A
== END 2019-08-01 20:52 | disposition home or self-care (01) ==
LOC: M ED 19:46
DX: S43.52XA Sprain of left acromioclavicular joint, initial encounter (principal); V00.131A Fall from skateboard, initial encounter; Y92.410 Unspecified street and highway as the place of occurrence of the external cause; Y93.51 Activity, roller skating (inline) and skateboarding; F17.290 Nicotine dependence, other tobacco product, uncomplicated